=== PATIENT | male | born 1945 | race Caucasian/White ===

== ENCOUNTER → 2017-09-27 | Outpatient (CLI) | payer OTHER ==
[~2017-09-27] MED LIST: ACET500 PO; AZIT250 PO; Bupropion Xl150 MG PO; CEFA500; DOCCAL240 PO; FLUC100 PO; FOLI1 PO; GAVILAX17 GM PO; HYDACE5 PO; HYDCHL12.5 PO; LEVFLO500 PO; LOSA25 PO; Lithium Carbon600 MG PO; METR500 PO; MULTI VITAMIN1 EACH PO; NATURE'S TEARS15 M1 BOTHEYES; Naprosyn500 MG PO; ONDA8 PO; OXCA300; OXYC10TA19 PO; PANT40 PO; QUET300 PO; RETAINE HPMC 0.10 ML BOTHEYES; RXHYDACE PO; SODCHL.65S; TAMS.4ER PO; THIA100 PO; ZOLP10 PO
== END ==
LOC: LAB 14:01
DX: L03.90 Cellulitis, unspecified (principal); L03.119 Cellulitis of unspecified part of limb
CPT/HCPCS: 87070; 87205

== ENCOUNTER → 2017-12-12 | Outpatient (CLI) | payer OTHER ==
[~2017-12-12] MED LIST changes: -ACET500 PO; -Naprosyn500 MG PO; -QUET300 PO; +RETAINE HPMC 0.10 ML; -RETAINE HPMC 0.10 ML BOTHEYES
== END ==
LOC: PLD 13:24 → LAB SHORT 13:24
DX: L28.2 Other prurigo (principal)
CPT/HCPCS: 88305; 88312

== ENCOUNTER 2018-01-17 00:42 | Observation (INO) | END 2018-01-25 11:40 ==

== ENCOUNTER 2018-01-25 14:38 | Observation (INO) | payer OTHER ==
[~2018-01-25] VITALS: Ht 180.3 cm; Wt 82.4 kg
[~2018-01-25 14:38] MED LIST changes: -RETAINE HPMC 0.10 ML; +RETAINE HPMC 0.10 ML BOTHEYES
[2018-01-28 18:39] LABS: Source, Urine Clean Catch
[2018-01-28 18:44] LABS: BASOPHILS ABSOLUTE AUTO 0.02 K/mm3 (0.00-0.23); BASOPHILS PERCENT AUTO 0 % (0-2); EOSINOPHILS ABSOLUTE AUTO 0.02 K/mm3 (0.00-0.68); EOSINOPHILS PERCENT AUTO 0 % (0-6); Hemoglobin 13.7 g/dL (13.5-17.5); IMMATURE GRAN ABSOLUTE AUTO 0.07 K/mm3 (0.00-0.10); IMMATURE GRAN PERCENT AUTO 1 % (0-1); LYMPHOCYTES ABSOLUTE AUTO 0.48 K/mm3 (0.84-5.20); LYMPHOCYTES PERCENT AUTO 6 % (21-46); MONOCYTES ABSOLUTE AUTO 1.11 K/mm3 (0.16-1.47); MONOCYTES PERCENT AUTO 14 % (4-13); Mean Corpuscular HGB 30.7 pg (26.0-34.0); Mean Corpuscular HGB Conc 31.9 g/dL (31.5-36.5); Mean Corpuscular Volume 96 fL (80-100); Mean Platelet Volume 9.8 fL (9.1-12.4); NEUTROPHILS ABSOLUTE AUTO 6.51 K/mm3 (1.96-9.15); NEUTROPHILS PERCENT AUTO 79 % (41-73); Platelet Count 180 K/mm3 (150-400); RDW Coefficient Variation 13.3 % (11.7-14.2); RDW Standard Deviation 47.4 fL (35.1-46.3); Red Blood Cell Count 4.46 M/mm3 (4.30-5.90); White Blood Cell Count 8.21 K/mm3 (4.00-11.30)
[2018-01-28 18:49] LABS: Bilirubin, Urine Neg (Neg); Blood, Urine 1+ (Neg); Glucose Qualitative, Urine Neg (Neg); Ketones, Urine Neg (Neg); Leukocyte Esterase, Urine 3+ (Neg); Nitrite, Urine Neg (Neg); Protein, Urine Neg (Neg); Urobilinogen, Urine NORM (Normal)
[2018-01-28 18:52] LABS: Appearance, Urine Hazy (Clear); Color, Urine Yellow (P-Yellow)
[2018-01-28 19:09] LABS: Alanine Aminotransfer (ALT/SGP 23 U/L (12-78); Albumin, Blood 2.7 g/dL (3.4-5.0); Albumin/Globulin Ratio 0.7 (0.8-1.8); Alk Phos 66 U/L (50-136); Anion Gap 4 mmol/L (6-16); Aspartate Aminotrans (AST/SGOT 16 U/L (12-37); Bilirubin, Total 0.3 mg/dL (0.1-1.0); Blood Urea Nitrogen 21 mg/dL (8-24); Bun/Creatinine Ratio 19.8 (12.0-20.0); CO2, Blood 28 mmol/L (21-32); Calcium, Blood 11.2 mg/dL (8.5-10.1); Chloride, Blood 106 mmol/L (98-108); Creatinine, Blood 1.06 mg/dL (0.60-1.20); Globulin, Blood 3.8 g/dL (2.2-4.0); Glomerular Filtration Rate >60 (60-); Glucose, Blood 102 mg/dL (70-99); Potassium, Blood 4.6 mmol/L (3.5-5.5); Sodium, Blood 138 mmol/L (136-145); Total Protein, Blood 6.5 g/dL (6.4-8.2)
[2018-01-28 19:13] LABS: Bacteria Many /hpf; Squamous Epithelial Cells Rare /hpf (Few); White Blood Cells, Urine 50-100 /hpf (0-5)
[2018-01-30 09:01] LABS: BASOPHILS ABSOLUTE AUTO 0.02 K/mm3 (0.00-0.23); BASOPHILS PERCENT AUTO 0 % (0-2); EOSINOPHILS ABSOLUTE AUTO 0.15 K/mm3 (0.00-0.68); EOSINOPHILS PERCENT AUTO 2 % (0-6); Hematocrit 41.7 % (37.0-53.0); Hemoglobin 13.5 g/dL (13.5-17.5); IMMATURE GRAN PERCENT AUTO 1 % (0-1); LYMPHOCYTES ABSOLUTE AUTO 0.74 K/mm3 (0.84-5.20); LYMPHOCYTES PERCENT AUTO 9 % (21-46); MONOCYTES ABSOLUTE AUTO 0.88 K/mm3 (0.16-1.47); MONOCYTES PERCENT AUTO 10 % (4-13); Mean Corpuscular HGB 31.6 pg (26.0-34.0); Mean Corpuscular HGB Conc 32.4 g/dL (31.5-36.5); Mean Corpuscular Volume 98 fL (80-100); Mean Platelet Volume 9.8 fL (9.1-12.4); NEUTROPHILS ABSOLUTE AUTO 6.74 K/mm3 (1.96-9.15); NEUTROPHILS PERCENT AUTO 78 % (41-73); Platelet Count 210 K/mm3 (150-400); RDW Coefficient Variation 13.6 % (11.7-14.2); RDW Standard Deviation 48.9 fL (35.1-46.3); Red Blood Cell Count 4.27 M/mm3 (4.30-5.90); White Blood Cell Count 8.63 K/mm3 (4.00-11.30)
[2018-01-30 09:19] LABS: Alanine Aminotransfer (ALT/SGP 18 U/L (12-78); Albumin, Blood 2.4 g/dL (3.4-5.0); Albumin/Globulin Ratio 0.6 (0.8-1.8); Alk Phos 60 U/L (50-136); Anion Gap 5 mmol/L (6-16); Aspartate Aminotrans (AST/SGOT 8 U/L (12-37); Bilirubin, Total 0.2 mg/dL (0.1-1.0); Blood Urea Nitrogen 27 mg/dL (8-24); Bun/Creatinine Ratio 25.2 (12.0-20.0); CO2, Blood 29 mmol/L (21-32); Calcium, Blood 11.4 mg/dL (8.5-10.1); Chloride, Blood 107 mmol/L (98-108); Creatinine, Blood 1.07 mg/dL (0.60-1.20); Globulin, Blood 3.7 g/dL (2.2-4.0); Glomerular Filtration Rate >60 (60-); Glucose, Blood 110 mg/dL (70-99); Potassium, Blood 4.5 mmol/L (3.5-5.5); Sodium, Blood 141 mmol/L (136-145); Total Protein, Blood 6.1 g/dL (6.4-8.2)
[2018-02-02 06:19] LABS: Source, Urine Clean Catch
[2018-02-02 06:27] LABS: Bilirubin, Urine Neg (Neg); Blood, Urine Neg (Neg); Glucose Qualitative, Urine Neg (Neg); Ketones, Urine Neg (Neg); Leukocyte Esterase, Urine 1+ (Neg); Nitrite, Urine Neg (Neg); Protein, Urine Neg (Neg); Urobilinogen, Urine NORM (Normal); pH, Urine 6.5 (5.0-8.0)
[2018-02-02 06:28] LABS: Appearance, Urine Clear (Clear); Color, Urine Yellow (P-Yellow)
[2018-02-02 06:33] LABS: Bacteria Rare /hpf; Red Blood Cells, Urine Not Seen /hpf (0-2); Squamous Epithelial Cells Rare /hpf (Few)
[2018-02-04 10:40] LABS: Source, Urine Clean Catch
[2018-02-04 10:44] LABS: Bilirubin, Urine Neg (Neg); Blood, Urine Neg (Neg); Glucose Qualitative, Urine Neg (Neg); Ketones, Urine Neg (Neg); Leukocyte Esterase, Urine Neg (Neg); Nitrite, Urine Neg (Neg); Protein, Urine Neg (Neg); Specific Gravity, Urine 1.015 (1.003-1.022); Urobilinogen, Urine NORM (Normal)
[2018-02-04 10:52] LABS: Appearance, Urine Clear (Clear); Color, Urine Yellow (P-Yellow)
[2018-02-10 11:00] LABS: Calcium, Ionized (POC) 1.43 mmol/L (1.10-1.46); Chloride (POC) 108 mmol/L (98-108); Glucose (ISTAT POC) 101 mg/dL (70-99); Hemoglobin (POC) 12.9 g/dL (13.5-17.5); Potassium (POC) 4.5 mmol/L (3.5-5.5); Sodium (POC) 141 mmol/L (135-148); Total CO2 (POC) 23 mmol/L (21-32)
[2018-02-10 11:30] LABS: Lithium <0.20 mmol/L (0.60-1.20)
[2018-02-13 16:11] LABS: BASOPHILS ABSOLUTE AUTO 0.06 K/mm3 (0.00-0.23); BASOPHILS PERCENT AUTO 1 % (0-2); EOSINOPHILS PERCENT AUTO 2 % (0-6); Hematocrit 39.9 % (37.0-53.0); Hemoglobin 12.6 g/dL (13.5-17.5); IMMATURE GRAN ABSOLUTE AUTO 0.06 K/mm3 (0.00-0.10); IMMATURE GRAN PERCENT AUTO 1 % (0-1); LYMPHOCYTES ABSOLUTE AUTO 0.91 K/mm3 (0.84-5.20); LYMPHOCYTES PERCENT AUTO 8 % (21-46); MONOCYTES ABSOLUTE AUTO 0.95 K/mm3 (0.16-1.47); MONOCYTES PERCENT AUTO 9 % (4-13); Mean Corpuscular HGB Conc 31.6 g/dL (31.5-36.5); Mean Corpuscular Volume 98 fL (80-100); Mean Platelet Volume 9.5 fL (9.1-12.4); NEUTROPHILS ABSOLUTE AUTO 8.82 K/mm3 (1.96-9.15); NEUTROPHILS PERCENT AUTO 80 % (41-73); Platelet Count 301 K/mm3 (150-400); RDW Coefficient Variation 13.7 % (11.7-14.2); RDW Standard Deviation 49.6 fL (35.1-46.3); Red Blood Cell Count 4.06 M/mm3 (4.30-5.90)
[2018-02-13 16:34] LABS: Alanine Aminotransfer (ALT/SGP 16 U/L (12-78); Albumin, Blood 2.8 g/dL (3.4-5.0); Albumin/Globulin Ratio 0.9 (0.8-1.8); Alk Phos 69 U/L (50-136); Anion Gap 6 mmol/L (6-16); Aspartate Aminotrans (AST/SGOT 9 U/L (12-37); Bilirubin, Total 0.3 mg/dL (0.1-1.0); Blood Urea Nitrogen 30 mg/dL (8-24); Bun/Creatinine Ratio 29.4 (12.0-20.0); CO2, Blood 25 mmol/L (21-32); Calcium, Blood 9.7 mg/dL (8.5-10.1); Chloride, Blood 112 mmol/L (98-108); Creatinine, Blood 1.02 mg/dL (0.60-1.20); Globulin, Blood 3.2 g/dL (2.2-4.0); Glomerular Filtration Rate >60 (60-); Glucose, Blood 93 mg/dL (70-99); Potassium, Blood 4.8 mmol/L (3.5-5.5); Sodium, Blood 143 mmol/L (136-145); Troponin I <0.015 ng/mL (0.000-0.040)
[2018-02-13 16:35] LABS: Thyroid Stimulating Hormone 0.125 uIU/mL (0.360-4.800)
[2018-02-13 21:10] LABS: Free Thyroxine 0.79 ng/dL (0.70-1.60)
[2018-02-13 21:12] LABS: Triiodothyronine, Free 1.62 pg/mL (2.18-3.98)
[2018-03-06 15:26] LABS: BASOPHILS ABSOLUTE AUTO 0.05 K/mm3 (0.00-0.23); BASOPHILS PERCENT AUTO 1 % (0-2); EOSINOPHILS ABSOLUTE AUTO 0.34 K/mm3 (0.00-0.68); EOSINOPHILS PERCENT AUTO 4 % (0-6); Hematocrit 37.3 % (37.0-53.0); Hemoglobin 12.2 g/dL (13.5-17.5); IMMATURE GRAN ABSOLUTE AUTO 0.02 K/mm3 (0.00-0.10); IMMATURE GRAN PERCENT AUTO 0 % (0-1); LYMPHOCYTES ABSOLUTE AUTO 1.15 K/mm3 (0.84-5.20); LYMPHOCYTES PERCENT AUTO 13 % (21-46); MONOCYTES ABSOLUTE AUTO 0.75 K/mm3 (0.16-1.47); MONOCYTES PERCENT AUTO 9 % (4-13); Mean Corpuscular HGB 31.5 pg (26.0-34.0); Mean Corpuscular HGB Conc 32.7 g/dL (31.5-36.5); Mean Corpuscular Volume 96 fL (80-100); Mean Platelet Volume 9.6 fL (9.1-12.4); NEUTROPHILS ABSOLUTE AUTO 6.47 K/mm3 (1.96-9.15); NEUTROPHILS PERCENT AUTO 74 % (41-73); Platelet Count 210 K/mm3 (150-400); RDW Coefficient Variation 14.6 % (11.7-14.2); RDW Standard Deviation 51.2 fL (35.1-46.3); Red Blood Cell Count 3.87 M/mm3 (4.30-5.90); White Blood Cell Count 8.78 K/mm3 (4.00-11.30)
[2018-03-06 15:45] LABS: Alanine Aminotransfer (ALT/SGP 10 U/L (12-78); Albumin, Blood 3.1 g/dL (3.4-5.0); Alk Phos 65 U/L (50-136); Anion Gap 8 mmol/L (6-16); Aspartate Aminotrans (AST/SGOT 9 U/L (12-37); Bilirubin, Total 0.5 mg/dL (0.1-1.0); Blood Urea Nitrogen 25 mg/dL (8-24); Bun/Creatinine Ratio 22.9 (12.0-20.0); CO2, Blood 21 mmol/L (21-32); Calcium, Blood 9.2 mg/dL (8.5-10.1); Chloride, Blood 113 mmol/L (98-108); Creatinine, Blood 1.09 mg/dL (0.60-1.20); Glomerular Filtration Rate >60 (60-); Glucose, Blood 93 mg/dL (70-99); Potassium, Blood 4.1 mmol/L (3.5-5.5); Sodium, Blood 142 mmol/L (136-145); Total Protein, Blood 6.1 g/dL (6.4-8.2)
[2018-03-06 15:49] LABS: Lithium 0.94 mmol/L (0.60-1.20)
[2018-03-08 04:56] LABS: BASOPHILS ABSOLUTE AUTO 0.04 K/mm3 (0.00-0.23); BASOPHILS PERCENT AUTO 1 % (0-2); EOSINOPHILS ABSOLUTE AUTO 0.39 K/mm3 (0.00-0.68); EOSINOPHILS PERCENT AUTO 5 % (0-6); Hematocrit 36.2 % (37.0-53.0); Hemoglobin 11.5 g/dL (13.5-17.5); IMMATURE GRAN ABSOLUTE AUTO 0.03 K/mm3 (0.00-0.10); IMMATURE GRAN PERCENT AUTO 0 % (0-1); LYMPHOCYTES ABSOLUTE AUTO 1.23 K/mm3 (0.84-5.20); LYMPHOCYTES PERCENT AUTO 14 % (21-46); MONOCYTES ABSOLUTE AUTO 0.81 K/mm3 (0.16-1.47); MONOCYTES PERCENT AUTO 10 % (4-13); Mean Corpuscular HGB 30.3 pg (26.0-34.0); Mean Corpuscular HGB Conc 31.8 g/dL (31.5-36.5); Mean Corpuscular Volume 96 fL (80-100); Mean Platelet Volume 9.5 fL (9.1-12.4); NEUTROPHILS ABSOLUTE AUTO 6.05 K/mm3 (1.96-9.15); NEUTROPHILS PERCENT AUTO 71 % (41-73); Platelet Count 208 K/mm3 (150-400); RDW Coefficient Variation 14.7 % (11.7-14.2); RDW Standard Deviation 50.8 fL (35.1-46.3); Red Blood Cell Count 3.79 M/mm3 (4.30-5.90); White Blood Cell Count 8.55 K/mm3 (4.00-11.30)
[2018-03-08 05:18] LABS: Alanine Aminotransfer (ALT/SGP 8 U/L (12-78); Albumin, Blood 2.8 g/dL (3.4-5.0); Alk Phos 61 U/L (50-136); Anion Gap 7 mmol/L (6-16); Aspartate Aminotrans (AST/SGOT 9 U/L (12-37); Bilirubin, Total 0.5 mg/dL (0.1-1.0); Blood Urea Nitrogen 26 mg/dL (8-24); Bun/Creatinine Ratio 25.5 (12.0-20.0); CO2, Blood 23 mmol/L (21-32); Calcium, Blood 9.1 mg/dL (8.5-10.1); Chloride, Blood 115 mmol/L (98-108); Creatinine, Blood 1.02 mg/dL (0.60-1.20); Globulin, Blood 2.8 g/dL (2.2-4.0); Glomerular Filtration Rate >60 (60-); Glucose, Blood 94 mg/dL (70-99); Potassium, Blood 3.9 mmol/L (3.5-5.5); Sodium, Blood 145 mmol/L (136-145); Total Protein, Blood 5.6 g/dL (6.4-8.2)
[2018-03-09] MEDS ORDERED: ACET500 PO (13:34)
[2018-03-09] MEDS ORDERED: QUET300 PO (13:34)
== END 2018-03-09 16:16 | disposition home or self-care (01) ==
LOC: ER 14:38 → EOR 14:39 → MEDS 03-07 18:53 → ENPENDDIS 03-09 12:42 → MEDS 03-09 16:16
PROVIDERS: Emergency Medicine; Internal Medicine; Student in an Organized Health Care Education/Training Program
DX: F30.9 Manic episode, unspecified (principal); F23 Brief psychotic disorder; E86.0 Dehydration; F11.90 Opioid use, unspecified, uncomplicated; E83.52 Hypercalcemia; G30.9 Alzheimer's disease, unspecified; F02.80 Dementia in other diseases classified elsewhere, unspecified severity, without behavioral disturbance, psychotic disturbance, mood disturbance, and anxiety; N40.0 Benign prostatic hyperplasia without lower urinary tract symptoms; I10 Essential (primary) hypertension; M19.90 Unspecified osteoarthritis, unspecified site; G47.33 Obstructive sleep apnea (adult) (pediatric); K50.90 Crohn's disease, unspecified, without complications; I95.9 Hypotension, unspecified; Z79.2 Long term (current) use of antibiotics; Z79.899 Other long term (current) drug therapy
CPT/HCPCS: 36415; 51798; 70450; 80047; 80053; 80178; 81001; 81003; 83605; 84439; 84443; 84481; 84484; 85014; 85025; 87077; 87086; 87186; 93005; 93010; 96360; 96361; 97162; 99285-25; G0378; G8978; G8979; G8980; J7030

== ENCOUNTER 2018-04-19 08:36 | Emergency (ER) | payer OTHER ==
[~2018-04-19] VITALS: Ht 182.9 cm; Wt 80.7 kg
[~2018-04-19 08:36] MED LIST changes: +ACET500 PO; +QUET300 PO
[2018-04-19 10:00] LABS: Chloride (POC) 110 mmol/L (98-108); Creatinine (POC) 1.1 mg/dL (0.8-1.3); Glucose (ISTAT POC) 84 mg/dL (70-99); Hemoglobin (POC) 14.3 g/dL (13.5-17.5); Potassium (POC) 4.3 mmol/L (3.5-5.5); Sodium (POC) 142 mmol/L (135-148); Total CO2 (POC) 24 mmol/L (21-32)
== END 2018-04-19 10:51 | disposition left against medical advice (07) ==
LOC: ER 08:36
PROVIDERS: Physician Assistant
DX: J44.1 Chronic obstructive pulmonary disease with (acute) exacerbation (principal); F31.9 Bipolar disorder, unspecified; F03.90 Unspecified dementia, unspecified severity, without behavioral disturbance, psychotic disturbance, mood disturbance, and anxiety; I10 Essential (primary) hypertension; F17.200 Nicotine dependence, unspecified, uncomplicated; Z79.899 Other long term (current) drug therapy
CPT/HCPCS: 71046; 80047; 85014; 99283-25

== ENCOUNTER 2019-02-26 17:48 | Emergency (ER) | payer SELFPAY ==
[~2019-02-26] VITALS: Ht 182.9 cm; Wt 78.0 kg
[~2019-02-26 17:48] MED LIST changes: +Lasix20 MG PO; +Naprosyn500 MG PO
[2019-02-26] MEDS ORDERED: Lithium Carbon600 MG PO (18:52)
== END 2019-02-26 19:14 | disposition home or self-care (01) ==
LOC: ER 17:48
DX: Z76.0 Encounter for issue of repeat prescription (principal); Z79.899 Other long term (current) drug therapy; F31.9 Bipolar disorder, unspecified; F03.90 Unspecified dementia, unspecified severity, without behavioral disturbance, psychotic disturbance, mood disturbance, and anxiety; I10 Essential (primary) hypertension; F17.210 Nicotine dependence, cigarettes, uncomplicated
CPT/HCPCS: 99281

== ENCOUNTER 2019-04-27 03:21 | Emergency (ER) | payer OTHER ==
[~2019-04-27] VITALS: Ht 182.9 cm; Wt 81.7 kg
[2019-04-27 04:31] LABS: BASOPHILS ABSOLUTE AUTO 0.04 K/mm3 (0.00-0.23); BASOPHILS PERCENT AUTO 0 % (0-2); EOSINOPHILS ABSOLUTE AUTO 0.19 K/mm3 (0.00-0.68); EOSINOPHILS PERCENT AUTO 2 % (0-6); Hematocrit 43.8 % (37.0-53.0); Hemoglobin 14.1 g/dL (13.5-17.5); IMMATURE GRAN ABSOLUTE AUTO 0.06 K/mm3 (0.00-0.10); IMMATURE GRAN PERCENT AUTO 1 % (0-1); LYMPHOCYTES ABSOLUTE AUTO 1.16 K/mm3 (0.84-5.20); LYMPHOCYTES PERCENT AUTO 10 % (21-46); MONOCYTES ABSOLUTE AUTO 0.88 K/mm3 (0.16-1.47); MONOCYTES PERCENT AUTO 8 % (4-13); Mean Corpuscular HGB 32.3 pg (26.0-34.0); Mean Corpuscular HGB Conc 32.2 g/dL (31.5-36.5); Mean Corpuscular Volume 100 fL (80-100); NEUTROPHILS ABSOLUTE AUTO 9.16 K/mm3 (1.96-9.15); NEUTROPHILS PERCENT AUTO 80 % (41-73); RDW Coefficient Variation 16.5 % (11.7-14.2); RDW Standard Deviation 61.9 fL (35.1-46.3); Red Blood Cell Count 4.37 M/mm3 (4.30-5.90); White Blood Cell Count 11.49 K/mm3 (4.00-11.30)
[2019-04-27 04:34] LABS: Mean Platelet Volume 9.5 fL (9.1-12.4); Platelet Count 268 K/mm3 (150-400)
[2019-04-27 04:42] LABS: Alanine Aminotransfer (ALT/SGP 14 U/L (12-78); Albumin, Blood 3.4 g/dL (3.4-5.0); Albumin/Globulin Ratio 0.9 (0.8-1.8); Alk Phos 91 U/L (50-136); Anion Gap 6 mmol/L (6-16); Aspartate Aminotrans (AST/SGOT 16 U/L (12-37); Bilirubin, Total 0.5 mg/dL (0.1-1.0); Blood Urea Nitrogen 20 mg/dL (8-24); Bun/Creatinine Ratio 20.1 (12.0-20.0); CO2, Blood 24 mmol/L (21-32); Calcium, Blood 9.6 mg/dL (8.5-10.1); Chloride, Blood 110 mmol/L (98-108); Ethanol (Alcohol), Blood, Med <3 mg/dL; Globulin, Blood 3.8 g/dL (2.2-4.0); Glomerular Filtration Rate >60 (60-); Glucose, Blood 83 mg/dL (70-99); International Normalized Ratio 0.97; Potassium, Blood 4.1 mmol/L (3.5-5.5); Prothrombin Time Results 10.3 Sec (9.7-11.5); Sodium, Blood 140 mmol/L (136-145); Total Protein, Blood 7.2 g/dL (6.4-8.2)
[2019-04-27 06:16] LABS: Lithium <0.20 mmol/L (0.60-1.20)
== END 2019-04-27 08:15 | disposition home or self-care (01) ==
LOC: ER 03:21
PROVIDERS: Emergency Medicine
DX: S30.1XXA Contusion of abdominal wall, initial encounter (principal); Z91.19 Patient's noncompliance with other medical treatment and regimen; V49.9XXA Car occupant (driver) (passenger) injured in unspecified traffic accident, initial encounter; Z79.899 Other long term (current) drug therapy; F31.9 Bipolar disorder, unspecified; G30.9 Alzheimer's disease, unspecified; I10 Essential (primary) hypertension; F17.210 Nicotine dependence, cigarettes, uncomplicated
CPT/HCPCS: 36415; 70450; 71250; 72125; 74176; 80053; 80178; 83690; 85025; 85610; 85730; 86850; 86900; 86901; 96374; 96375; 99284-25; G0480; J2060; J2270

== ENCOUNTER 2019-04-28 17:20 | Emergency (ER) | payer OTHER ==
[~2019-04-28] VITALS: Ht 180.3 cm; Wt 90.7 kg
== END 2019-04-28 18:01 | disposition home or self-care (01) ==
LOC: ER 17:20
DX: M54.9 Dorsalgia, unspecified (principal); I10 Essential (primary) hypertension; F31.9 Bipolar disorder, unspecified; G30.9 Alzheimer's disease, unspecified; F02.80 Dementia in other diseases classified elsewhere, unspecified severity, without behavioral disturbance, psychotic disturbance, mood disturbance, and anxiety; F17.210 Nicotine dependence, cigarettes, uncomplicated; Z79.899 Other long term (current) drug therapy; V89.2XXA Person injured in unspecified motor-vehicle accident, traffic, initial encounter
CPT/HCPCS: 99283

== ENCOUNTER 2019-07-25 19:18 | Emergency (ER) | payer SELFPAY ==
[~2019-07-25] VITALS: Ht 175.3 cm; Wt 84.8 kg
== END 2019-07-25 20:04 | disposition home or self-care (01) ==
LOC: ER 19:18
DX: S20.211A Contusion of right front wall of thorax, initial encounter (principal); F31.9 Bipolar disorder, unspecified; Z79.899 Other long term (current) drug therapy; Y04.2XXA Assault by strike against or bumped into by another person, initial encounter
CPT/HCPCS: 73030; 73110; 99283-25

== ENCOUNTER 2019-08-09 19:25 | Emergency (ER) | payer SELFPAY ==
[~2019-08-09 19:25] MED LIST changes: +HYDR25SUP PR
[2019-08-17] MEDS ORDERED: IBUP600 PO (14:30)
[2019-08-19] MEDS ORDERED: ACETAMINOPHEN500 MG PO (18:06)
== END 2019-08-09 19:28 | disposition left against medical advice (07) ==
LOC: ER 19:25
DX: Z53.21 Procedure and treatment not carried out due to patient leaving prior to being seen by health care provider (principal)

== ENCOUNTER 2019-10-05 10:18 | Emergency (ER) | payer SELFPAY ==
[~2019-10-05] VITALS: Ht 177.8 cm; Wt 74.8 kg
[~2019-10-05 10:18] MED LIST changes: +ACETAMINOPHEN500 MG PO; +IBUP600 PO
[2019-10-05 10:52] LABS: BASOPHILS ABSOLUTE AUTO 0.03 K/mm3 (0.00-0.23); BASOPHILS PERCENT AUTO 0 % (0-2); EOSINOPHILS ABSOLUTE AUTO 0.17 K/mm3 (0.00-0.68); EOSINOPHILS PERCENT AUTO 2 % (0-6); Hematocrit 42.8 % (37.0-53.0); IMMATURE GRAN ABSOLUTE AUTO 0.06 K/mm3 (0.00-0.10); IMMATURE GRAN PERCENT AUTO 1 % (0-1); LYMPHOCYTES ABSOLUTE AUTO 0.93 K/mm3 (0.84-5.20); LYMPHOCYTES PERCENT AUTO 11 % (21-46); MONOCYTES PERCENT AUTO 12 % (4-13); Mean Corpuscular HGB 28.7 pg (26.0-34.0); Mean Corpuscular HGB Conc 30.4 g/dL (31.5-36.5); Mean Corpuscular Volume 95 fL (80-100); Mean Platelet Volume 9.6 fL (9.1-12.4); NEUTROPHILS ABSOLUTE AUTO 6.06 K/mm3 (1.96-9.15); NEUTROPHILS PERCENT AUTO 73 % (41-73); Platelet Count 282 K/mm3 (150-400); RDW Coefficient Variation 15.5 % (11.7-14.2); RDW Standard Deviation 53.3 fL (35.1-46.3); Red Blood Cell Count 4.53 M/mm3 (4.30-5.90); White Blood Cell Count 8.25 K/mm3 (4.00-11.30)
[2019-10-05 11:13] LABS: Alanine Aminotransfer (ALT/SGP 10 U/L (12-78); Albumin, Blood 2.5 g/dL (3.4-5.0); Albumin/Globulin Ratio 0.7 (0.8-1.8); Alk Phos 87 U/L (50-136); Anion Gap 2 mmol/L (6-16); Aspartate Aminotrans (AST/SGOT 5 U/L (12-37); Bilirubin, Total 0.3 mg/dL (0.1-1.0); Blood Urea Nitrogen 18 mg/dL (8-24); Bun/Creatinine Ratio 17.8 (12.0-20.0); CO2, Blood 28 mmol/L (21-32); Chloride, Blood 114 mmol/L (98-108); Creatinine, Blood 1.01 mg/dL (0.60-1.20); Globulin, Blood 3.8 g/dL (2.2-4.0); Glomerular Filtration Rate >60 (60-); Glucose, Blood 114 mg/dL (70-99); Potassium, Blood 4.7 mmol/L (3.5-5.5); Sodium, Blood 144 mmol/L (136-145); Total Protein, Blood 6.3 g/dL (6.4-8.2); Troponin I <0.015 ng/mL (0.000-0.040)
[2019-10-05 11:17] LABS: Thyroid Stimulating Hormone 0.168 uIU/mL (0.360-4.800)
[2019-10-05] MEDS ORDERED: Cardizem CD 12120 MG PO (12:46)
[2019-10-05] MEDS ORDERED: Lithium Carbon450 MG PO (14:15)
[2019-10-06] MEDS ORDERED: CEFD300 PO (10:23)
== END 2019-10-05 14:20 | disposition home or self-care (01) ==
LOC: ER 10:18
PROVIDERS: Emergency Medicine
DX: M79.661 Pain in right lower leg (principal); M79.662 Pain in left lower leg; I48.92 Unspecified atrial flutter; F31.9 Bipolar disorder, unspecified; I10 Essential (primary) hypertension; F17.210 Nicotine dependence, cigarettes, uncomplicated; Z79.899 Other long term (current) drug therapy
CPT/HCPCS: 36415; 71045; 80053; 83735; 84443; 84484; 85025; 93005; 93010; 96365; 96366; 96368; 96375; 99285-25; J3411; J3475; J7030; J7042

== ENCOUNTER 2019-10-10 12:41 | Emergency (ER) | payer OTHER ==
[~2019-10-10] VITALS: Ht 180.3 cm; Wt 84.8 kg
[~2019-10-10 12:41] MED LIST changes: +CEFD300 PO; +Cardizem CD 12120 MG PO; +Lithium Carbon450 MG PO
[2019-10-11] MEDS ORDERED: Augmentin 875-1 EACH PO (20:53)
== END 2019-10-10 14:57 | disposition home or self-care (01) ==
LOC: ER 12:41
DX: R51 Headache (principal); Z59.0 Homelessness; F31.9 Bipolar disorder, unspecified; I10 Essential (primary) hypertension; N40.0 Benign prostatic hyperplasia without lower urinary tract symptoms
CPT/HCPCS: 99284

== ENCOUNTER 2019-10-11 19:06 | Emergency (ER) | payer OTHER ==
[~2019-10-11] VITALS: Ht 182.9 cm; Wt 84.8 kg
[2019-10-11] MEDS ORDERED: Augmentin 875-1 EACH PO (20:53)
== END 2019-10-11 21:20 | disposition home or self-care (01) ==
LOC: ER 19:06
DX: S30.0XXA Contusion of lower back and pelvis, initial encounter (principal); N39.0 Urinary tract infection, site not specified; H92.01 Otalgia, right ear; F17.210 Nicotine dependence, cigarettes, uncomplicated; Y04.2XXA Assault by strike against or bumped into by another person, initial encounter
CPT/HCPCS: 72220; 96372; 99283-25; J0696

== ENCOUNTER 2019-10-12 04:38 | Emergency (ER) | payer OTHER ==
[~2019-10-12] VITALS: Ht 172.7 cm; Wt 72.6 kg
[~2019-10-12 04:38] MED LIST changes: +Augmentin 875-1 EACH PO
== END 2019-10-12 04:52 | disposition home or self-care (01) ==
LOC: ER 04:38
DX: Z00.00 Encounter for general adult medical examination without abnormal findings (principal); F31.9 Bipolar disorder, unspecified; I10 Essential (primary) hypertension; G30.9 Alzheimer's disease, unspecified; F02.80 Dementia in other diseases classified elsewhere, unspecified severity, without behavioral disturbance, psychotic disturbance, mood disturbance, and anxiety; G47.30 Sleep apnea, unspecified; F17.200 Nicotine dependence, unspecified, uncomplicated
CPT/HCPCS: 99283

== ENCOUNTER 2019-10-21 23:50 | Emergency (ER) | payer OTHER ==
[~2019-10-21] VITALS: Ht 182.9 cm; Wt 84.8 kg
[2019-10-25] MEDS ORDERED: AZIT500 PO (18:49)
[2019-10-25] MEDS ORDERED: LITH300C PO (18:56)
== END 2019-10-22 01:12 | disposition home or self-care (01) ==
LOC: ER 23:50
DX: S09.90XA Unspecified injury of head, initial encounter (principal); K43.9 Ventral hernia without obstruction or gangrene; I10 Essential (primary) hypertension; F17.210 Nicotine dependence, cigarettes, uncomplicated; X58.XXXA Exposure to other specified factors, initial encounter
CPT/HCPCS: 99283

== ENCOUNTER 2019-11-21 15:24 | Emergency (ER) | payer OTHER ==
[~2019-11-21] VITALS: Ht 175.3 cm; Wt 81.7 kg
[~2019-11-21 15:24] MED LIST changes: +AZIT500 PO; +LITH300C PO
[2019-11-21 15:57] LABS: BASOPHILS ABSOLUTE AUTO 0.06 K/mm3 (0.00-0.23); BASOPHILS PERCENT AUTO 1 % (0-2); EOSINOPHILS ABSOLUTE AUTO 0.16 K/mm3 (0.00-0.68); EOSINOPHILS PERCENT AUTO 2 % (0-6); Hematocrit 40.6 % (37.0-53.0); Hemoglobin 12.6 g/dL (13.5-17.5); IMMATURE GRAN ABSOLUTE AUTO 0.03 K/mm3 (0.00-0.10); IMMATURE GRAN PERCENT AUTO 0 % (0-1); LYMPHOCYTES ABSOLUTE AUTO 0.91 K/mm3 (0.84-5.20); LYMPHOCYTES PERCENT AUTO 12 % (21-46); MONOCYTES PERCENT AUTO 11 % (4-13); Mean Corpuscular HGB 30.2 pg (26.0-34.0); Mean Corpuscular Volume 97 fL (80-100); Mean Platelet Volume 9.6 fL (9.1-12.4); NEUTROPHILS ABSOLUTE AUTO 5.83 K/mm3 (1.96-9.15); NEUTROPHILS PERCENT AUTO 74 % (41-73); Platelet Count 272 K/mm3 (150-400); RDW Coefficient Variation 16.3 % (11.7-14.2); RDW Standard Deviation 59.4 fL (35.1-46.3); Red Blood Cell Count 4.17 M/mm3 (4.30-5.90); White Blood Cell Count 7.89 K/mm3 (4.00-11.30)
[2019-11-21 16:16] LABS: Source, Urine Clean Catch
[2019-11-21 16:18] LABS: Alanine Aminotransfer (ALT/SGP 16 U/L (12-78); Albumin, Blood 3.2 g/dL (3.4-5.0); Albumin/Globulin Ratio 0.9 (0.8-1.8); Alk Phos 95 U/L (50-136); Anion Gap 4 mmol/L (6-16); Aspartate Aminotrans (AST/SGOT 14 U/L (12-37); Bilirubin, Total 0.3 mg/dL (0.1-1.0); Blood Urea Nitrogen 18 mg/dL (8-24); Bun/Creatinine Ratio 22.1 (12.0-20.0); CO2, Blood 27 mmol/L (21-32); Chloride, Blood 109 mmol/L (98-108); Creatinine, Blood 0.81 mg/dL (0.60-1.20); Globulin, Blood 3.4 g/dL (2.2-4.0); Glomerular Filtration Rate >60 (60-); Glucose, Blood 110 mg/dL (70-99); Potassium, Blood 4.5 mmol/L (3.5-5.5); Sodium, Blood 140 mmol/L (136-145); Total Protein, Blood 6.6 g/dL (6.4-8.2)
[2019-11-21 16:41] LABS: Bilirubin, Urine Neg (Neg); Blood, Urine Neg (Neg); Glucose Qualitative, Urine Neg (Neg); Ketones, Urine Neg (Neg); Leukocyte Esterase, Urine Neg (Neg); Nitrite, Urine Neg (Neg); Protein, Urine Neg (Neg); Specific Gravity, Urine 1.015 (1.003-1.022); Urobilinogen, Urine NORM (Normal)
[2019-11-21 16:48] LABS: Appearance, Urine Clear (Clear); Color, Urine Yellow (P-Yellow)
[2019-11-21] MEDS ORDERED: DEXA4 PO (17:05)
== END 2019-11-21 17:33 | disposition home or self-care (01) ==
LOC: ER 15:24
PROVIDERS: Emergency Medicine
DX: K50.90 Crohn's disease, unspecified, without complications (principal); F31.9 Bipolar disorder, unspecified; I10 Essential (primary) hypertension; F17.210 Nicotine dependence, cigarettes, uncomplicated; Z79.899 Other long term (current) drug therapy
CPT/HCPCS: 36415; 80053; 81003; 85025; 96361; 96374; 96375; 99284-25; J1100; J2405; J3010; J7030

== ENCOUNTER 2019-11-22 20:23 | Emergency (ER) | payer OTHER ==
[~2019-11-22] VITALS: Ht 182.9 cm; Wt 84.8 kg
[~2019-11-22 20:23] MED LIST changes: +DEXA4 PO
== END 2019-11-22 23:23 | disposition home or self-care (01) ==
LOC: ER 20:23
DX: M54.5 Low back pain (principal); G89.29 Other chronic pain; F31.9 Bipolar disorder, unspecified; I10 Essential (primary) hypertension; G47.30 Sleep apnea, unspecified; F17.200 Nicotine dependence, unspecified, uncomplicated; Z79.899 Other long term (current) drug therapy
CPT/HCPCS: 99283

== ENCOUNTER 2019-11-24 00:38 | Emergency (ER) | payer OTHER ==
[~2019-11-24] VITALS: Ht 182.9 cm; Wt 84.8 kg
[2019-11-24] MEDS ORDERED: IBUP600 PO (02:51)
== END 2019-11-24 03:13 | disposition home or self-care (01) ==
LOC: ER 00:38
DX: S29.012A Strain of muscle and tendon of back wall of thorax, initial encounter (principal); M54.5 Low back pain; G89.29 Other chronic pain; F31.9 Bipolar disorder, unspecified; I10 Essential (primary) hypertension; N40.0 Benign prostatic hyperplasia without lower urinary tract symptoms; Z79.899 Other long term (current) drug therapy; F17.200 Nicotine dependence, unspecified, uncomplicated; G30.9 Alzheimer's disease, unspecified; F02.80 Dementia in other diseases classified elsewhere, unspecified severity, without behavioral disturbance, psychotic disturbance, mood disturbance, and anxiety; X58.XXXA Exposure to other specified factors, initial encounter
CPT/HCPCS: 99282; A9270-GY

== ENCOUNTER 2019-11-25 08:10 | Emergency (ER) | payer SELFPAY ==
[~2019-11-25] VITALS: Ht 175.3 cm; Wt 74.8 kg
== END 2019-11-25 09:33 | disposition left against medical advice (07) ==
LOC: ER 08:10
DX: Z53.21 Procedure and treatment not carried out due to patient leaving prior to being seen by health care provider (principal)

== ENCOUNTER 2019-12-01 14:12 | Observation (INO) | payer OTHER ==
[~2019-12-01] VITALS: Ht 172.7 cm; Wt 79.6 kg
[2019-12-01 17:27] LABS: Source, Urine Voided
[2019-12-01 17:29] LABS: BASOPHILS ABSOLUTE AUTO 0.03 K/mm3 (0.00-0.23); BASOPHILS PERCENT AUTO 0 % (0-2); EOSINOPHILS ABSOLUTE AUTO 0.14 K/mm3 (0.00-0.68); EOSINOPHILS PERCENT AUTO 1 % (0-6); Hematocrit 43.4 % (37.0-53.0); Hemoglobin 13.1 g/dL (13.5-17.5); IMMATURE GRAN ABSOLUTE AUTO 0.03 K/mm3 (0.00-0.10); IMMATURE GRAN PERCENT AUTO 0 % (0-1); LYMPHOCYTES ABSOLUTE AUTO 0.59 K/mm3 (0.84-5.20); LYMPHOCYTES PERCENT AUTO 6 % (21-46); MONOCYTES ABSOLUTE AUTO 0.74 K/mm3 (0.16-1.47); MONOCYTES PERCENT AUTO 8 % (4-13); Mean Corpuscular HGB Conc 30.2 g/dL (31.5-36.5); Mean Platelet Volume 10.2 fL (9.1-12.4); NEUTROPHILS ABSOLUTE AUTO 8.21 K/mm3 (1.96-9.15); NEUTROPHILS PERCENT AUTO 84 % (41-73); Platelet Count 260 K/mm3 (150-400); RDW Standard Deviation 60.1 fL (35.1-46.3); Red Blood Cell Count 4.36 M/mm3 (4.30-5.90); White Blood Cell Count 9.74 K/mm3 (4.00-11.30)
[2019-12-01 17:30] LABS: Alanine Aminotransfer (ALT/SGP 22 U/L (12-78); Albumin, Blood 2.7 g/dL (3.4-5.0); Albumin/Globulin Ratio 0.9 (0.8-1.8); Alk Phos 83 U/L (50-136); Anion Gap 4 mmol/L (6-16); Aspartate Aminotrans (AST/SGOT 24 U/L (12-37); Bilirubin, Total 0.3 mg/dL (0.1-1.0); Blood Urea Nitrogen 21 mg/dL (8-24); Bun/Creatinine Ratio 34.7 (12.0-20.0); CO2, Blood 25 mmol/L (21-32); Calcium, Blood 9.7 mg/dL (8.5-10.1); Chloride, Blood 117 mmol/L (98-108); Creatinine, Blood 0.61 mg/dL (0.60-1.20); Globulin, Blood 3.1 g/dL (2.2-4.0); Glomerular Filtration Rate >60 (60-); Glucose, Blood 85 mg/dL (70-99); Magnesium, Blood 1.9 mg/dL (1.6-2.4); Mean Corpuscular Volume 100 fL (80-100); Potassium, Blood 4.2 mmol/L (3.5-5.5); Sodium, Blood 146 mmol/L (136-145); Total Protein, Blood 5.8 g/dL (6.4-8.2)
[2019-12-01 17:31] LABS: Blood, Urine 3+ (Neg); Glucose Qualitative, Urine Neg (Neg); Ketones, Urine 1+ (Neg); Leukocyte Esterase, Urine 1+ (Neg); Nitrite, Urine Neg (Neg); Protein, Urine 2+ (Neg); Specific Gravity, Urine 1.025 (1.003-1.022); Urobilinogen, Urine 1+ (Normal)
[2019-12-01 17:44] LABS: Ethanol (Alcohol), Blood, Med <3 mg/dL
[2019-12-01 17:44] LABS: Appearance, Urine Hazy (Clear); Bilirubin, Urine 1+ (Neg); Color, Urine Yellow (P-Yellow)
[2019-12-01 17:47] LABS: Squamous Epithelial Cells Few /hpf (Few); White Blood Cells, Urine 0-2 /hpf (0-5)
[2019-12-01 17:48] LABS: Amorphous Mod (0-Heavy); Bacteria Mod /hpf
[2019-12-01 17:49] LABS: U Amphetamine Screen Not Detected; U Barbituate Screen Not Detected; U Benzodiazapine Screen Not Detected; U Buprenorphine Screen Not Detected; U Cannabinoids Screen DETECTED; U Cocaine Screen Not Detected; U Methadone Screen Not Detected; U Methamphetamine Screen Not Detected; U Opiates Screen Not Detected; U Oxycodone Screen Not Detected; U Phencyclidine Screen Not Detected; U Propoxyphene Screen Not Detected
[2019-12-01] MEDS ORDERED: FUROSEMIDE20 MG PO (18:24)
[2019-12-01] MEDS ORDERED: GABA100 PO (18:24)
[2019-12-01] MEDS ORDERED: BIOTIN5 MG PO (18:24)
[2019-12-01] MEDS ORDERED: Klor-Con 1010 MEQ PO (18:25)
[2019-12-01 19:05] LABS: Lithium <0.20 mmol/L (0.60-1.20)
[2019-12-01 19:06] LABS: Troponin I <0.015 ng/mL (0.000-0.040)
[2019-12-01 19:08] LABS: Thyroid Stimulating Hormone 0.564 uIU/mL (0.360-4.800)
--- NOTE | 2019-12-01 21:06 | NUR ---
PATIENT IS A NEW ADMIT FROM THE ED. AXO X [address] NO MONTH OR PRESIDENT. TWO PERSON TRANSFER FROM [facility] TO BED. REOPRTS HE IS HOMELESS. PATIENT ORIENTED TO ROOM AND CALL LIGHT SYSTEM. REPORTS BACK PAIN AT THIS TIME, FOOD AND DRINK PROVIDED PER DIET ORDERS. BEDREST. REPORTS WANTS TO GET SOME SLEEP. CALL LIGHT IN REACH.
--- NOTE | 2019-12-01 22:46 | NUR ---
SCHEDULED NICODERM PATCHED PLACED ON RIGHT SHOULDER. ULTRAM 50 MG GIVEN FOR BACK PAIN PER EMAR. SEROQUEL 25 MG GIVEN PRN PER HOSPITALIST TEMO RIG BUILDER. PATIENT RESTING AT THIS TIME.
[2019-12-02 00:19] LABS: BASOPHILS ABSOLUTE AUTO 0.03 K/mm3 (0.00-0.23); BASOPHILS PERCENT AUTO 0 % (0-2); EOSINOPHILS ABSOLUTE AUTO 0.23 K/mm3 (0.00-0.68); EOSINOPHILS PERCENT AUTO 3 % (0-6); Hematocrit 37.8 % (37.0-53.0); Hemoglobin 11.5 g/dL (13.5-17.5); IMMATURE GRAN ABSOLUTE AUTO 0.02 K/mm3 (0.00-0.10); IMMATURE GRAN PERCENT AUTO 0 % (0-1); LYMPHOCYTES ABSOLUTE AUTO 0.85 K/mm3 (0.84-5.20); LYMPHOCYTES PERCENT AUTO 11 % (21-46); MONOCYTES ABSOLUTE AUTO 0.74 K/mm3 (0.16-1.47); MONOCYTES PERCENT AUTO 10 % (4-13); Mean Corpuscular HGB 29.9 pg (26.0-34.0); Mean Corpuscular HGB Conc 30.4 g/dL (31.5-36.5); Mean Corpuscular Volume 98 fL (80-100); Mean Platelet Volume 9.9 fL (9.1-12.4); NEUTROPHILS ABSOLUTE AUTO 5.73 K/mm3 (1.96-9.15); NEUTROPHILS PERCENT AUTO 75 % (41-73); Platelet Count 245 K/mm3 (150-400); RDW Coefficient Variation 15.9 % (11.7-14.2); RDW Standard Deviation 57.8 fL (35.1-46.3); Red Blood Cell Count 3.84 M/mm3 (4.30-5.90)
[2019-12-02 00:37] LABS: Anion Gap 1 mmol/L (6-16); Blood Urea Nitrogen 26 mg/dL (8-24); Bun/Creatinine Ratio 30.2 (12.0-20.0); CO2, Blood 28 mmol/L (21-32); Chloride, Blood 118 mmol/L (98-108); Creatinine, Blood 0.86 mg/dL (0.60-1.20); Glomerular Filtration Rate >60 (60-); Glucose, Blood 91 mg/dL (70-99); Potassium, Blood 4.7 mmol/L (3.5-5.5); Sodium, Blood 147 mmol/L (136-145)
--- NOTE | 2019-12-02 00:54 | NUR ---
PSYCH CONSULT FAXED TO EMERGENCY DEPT.
--- NOTE | 2019-12-02 03:40 | NUR ---
SHIFT SUMMARY PATIENT HAD NO ACUTE CHANGES OBSERVED. AXO X 2-3 WITH NO MONTH OR PRESIDENT. HX DEMENTIA. BEDREST. PSYCH CONSULT FAXED TO ED. MADE INAPPROPRIATE REMARK TO FEMALE REFUGE WORKER PER ANOTHER RN. PIV REMAINS INTACT. VSS/AFEBRILE. REPORTED BACK PAIN X ONE AND ULTRAM 50 MG GIVEN PER EMAR. REPORTS SMOKING MARIJUANA DAILY. ON ROOM AIR. NICODERM PATCH IN PLACE. CALL LIGHT IN REACH. BED IN LOWEST POSITION. WILL CONTINUE TO MONITOR UNTIL DAY SHIFT NURSE ASSUMES CARE.
--- NOTE | 2019-12-02 12:57 | NUR ---
PT IS A/O X2, MAKES BIZZARE, GRANDIOSE STATEMENTS @ X'S. HE IS @ X'S VERY RUDE, DISRESPECTFUL TO STAFF, OBSCENE LANGUAGE. THROWS TANTRUMS FOR REASONS UNKNOWN, HAS THROWN HIS FOOD ALL OVER ROOM. ATTEMPTS TO PACIFY HIM UNSUCCESSFUL. ATTEMPTS TO REDIRECT UNSUCCESSFUL. DR VÁSQUEZ IN FOR PSYCHE CONSULT HOWEVER PT REFUSE, REQUEST DR OUT OF HIS ROOM. DR NGUYEN KNOWS PT WELL, WILL ADJUST MEDS & MX FOR IMPROVEMENT.
--- NOTE | 2019-12-02 16:45 | NUR ---
SUMMARY PT IS A/O X2-3. HX BIPOLAR D/O. HE HAS DISPLAYED IRRATIONAL BEHAVIOR TODAY, MAKES BIZZARE, GRANDIOSE STATEMENTS. @ X'S HE HAS HAD TEMPER OUTBURSTS, YELLING, VERBALLY ABUSIVE, THROWING FOOD & OTHER ITEMS--NONREDIRECTABLE. @ OTHER X'S HE HAS BEEN CALM, PLEASANT, APOLOGETIC. LABILE BEHAVIOR. DR VÁSQUEZ HAS BEEN CONSULTED, ADJUST MEDS. HAVE GIVEN PRN SEROQUEL X2 TODAY. PT STATE UNABLE TO AMBULATE @ THIS TIME, PAIN W MOVEMENT, HAVE GIVEN ULTRAM X2 TODAY. SCATTERED SCABS, ABRASIONS, BRUISES. R HAND RED, SWOLLEN. HE IS INCONT, IN ATTENDS. COMPLETE BEDBATH GIVEN TODAY. VSS, ON RA. PT WILL TRANSFER TO SCU RM [id number], REPORT GIVEN.
--- NOTE | 2019-12-02 16:50 | NUR ---
PT IS A/OX2, PLEASANT AND COOPERATIVE WHEN AWAKE, PT IS UP ON THE SIDE OF THE BED AND IN THE CHAIR FOR MEALS, PT APPEARS TO BE BREATHING EASILY ON RA, PT WAS UP TO THE BATHROOM AND REPORTED HAVING A BM, PT HAS BEEN TAKING THE ORDERED LACTULOSE, THE PT HAS SLEPT FOR MOST OF THE DAY CALL LIGHT IN REACH
--- NOTE | 2019-12-02 17:00 | NUR ---
ASSUMED THE PTS CARE, REPORT WAS TAKEN FROM MIRIAM PALMA, THE PT IS ASLEEP AT THIS TIME, CALL LIGHT IN REACH, WILL CONTINUE TO MONITOR AND ASSESS FOR CHANGES
[2019-12-02] MEDS ORDERED: ZOLP10 PO (17:08)
[2019-12-02] MEDS ORDERED: Lithium Carbon600 MG PO (17:08)
--- NOTE | 2019-12-02 20:24 | NUR ---
PT HAS REFUSED VS, AGGITATED/ANGRY
--- NOTE | 2019-12-02 21:24 | NUR ---
PT has been labile, verbally abusive, throws fluids on floor repeatedly. Calls RN multiple vulgar terms on verbally abusive tyraide. He yells racially and sexually demeaning slurs at RN and WORKERS COMPENSATION CLAIMS ASSISTANT. He chews up food spits it into hand and throws it across the room. I did manage to get HS rx and tylenol 650 mg into PT. 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 Assess for effect of litobid and seroquel as well as tylenol.
--- NOTE | 2019-12-02 21:26 | NUR ---
PT HAS HAD AN INCREASE IN AGGITATION AND ACTING OUT. HAS BEGUN THROWING BEVERAGES AND FOOD ITEMS AROUND ROOM, SHOUTING VULGARITIES AT STAFF.
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
--- NOTE | 2019-12-03 05:33 | NUR ---
PT REFUSED ATTENDS CHANGE AND CARE AT THIS TIME, AGGITATION INCREASED, PT THROWING BEVERAGES AND OBJECTS AT NURSE AND RESIDENCE LIFE COORDINATOR.
--- NOTE | 2019-12-03 05:56 | NUR ---
PT HAS REFUSED VS
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
--- NOTE | 2019-12-03 17:57 | NUR ---
SUMMARY PT RESTING QUIETLY IN BED, PT HAS HAD A LABILE MOOD T/O THE DAY, CAN BE VERY PLEASANT AND COOPERATIVE WITH CARE, THEN CAN SWITCH MOODS VERY QUICKLY AND CAN BE VULGAR AND VERBALLY ABUSIVE, HAS BEEN APOLOGETIC AFTER HIS OUTBURSTS TODAY, PT'S SPEECH IS DIFFICULT TO UNDERSTAND AT TIMES DUE TO POOR DENTITION AND SLURRED SPEECH, THIS MAKES THE PT FRUSTRATED AND CAN LEAD TO OUTBURSTS OF ANGER, PT NEEDS FREQUENT REMINDERS TO SPEAK SLOWLY AND CLEARLY SO STAFF CAN UNDERSTAND HIM, PT DOES REFUSE CARE AT TIMES, EDUCATED PT ABOUT THE IMPORTANCE OF HYGEINE AND SKIN CARE, DISCHARGE PLANNING WORKING ON A SAFE DISCHARGE PLAN, VSS, WILL CONTINUE TO MONITOR
--- NOTE | 2019-12-03 19:17 | NUR ---
pt cussing at this RN at shift change, tells day RN he has a ring worth 5 million dollars that she can take it home with her. Wearing a pink ring on cord around neck. when she asked where got it said from a bum. Then able to call and make several requests. Poor dentation asks for vegetables to eat. Offered yogurt, provided ice water. Poor hygiene has food smeared on chest declines wipe to clean off.
--- NOTE | 2019-12-03 20:41 | NUR ---
PT HAS REFUSED TO HAVE ATTENDS AND LINEN CHANGED. AGGRESSIVE AND AGGITATED
--- NOTE | 2019-12-03 22:06 | NUR ---
PT alternates between verbally abusive with posturing and threats and delusions of grandiure such as my necklace is worth 6 million dollars. He refused repeatedly to have wet attends changed, reapproached multiple times finally after medication with a prn 50 mg seroquel and ultram 50 mg and tylenol he finally let 2 staff change his attends incontinent of large amts of bowel & bladder. He says he has had 50 inches of small intestines removed. PT co gen pain rt hip pain radiates & is sharp. PT says he has been 7 times, says he is going to buy a big house. 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 Crushed meds to assure PT did not spit any out. He took soft foods and drank ensure supplements with set up.
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
--- NOTE | 2019-12-04 05:26 | NUR ---
PT REFUSED TO HAVE ATTENDS CHANGED
--- NOTE | 2019-12-04 06:27 | NUR ---
PT continues on remote camera monitor due to potential for violence, abusive bahaviors towards staff. He is also on fall precautions and did not attempt to leave bed. Intermittantly he did have his legs positioned off bed. Resting quietly after being medicated for pain and agitation. Speech garbled and difficult to understand. Continues to have skin at risk from pressure and moisture damage & he is unable to perform personal hygiene or reposition himself in bed. He has mental problems with refusals and intermittant explosive behaviors better on scheduled & PRN meds. PT has delusions and maladaptive coping. Psychosocial issues substance abuse issues mobility and housing issues. SW referral for assist with dc planning.
--- NOTE | 2019-12-04 17:29 | NUR ---
SUMMARY PT AWAKE IN BED WATCHING TV, PT HAS BEEN COOPERATIVE WITH CARE T/O THE DAY, PT DOES SWEAR A LOT, SPEECH SOMETIMES DIFFICULT TO UNDERSTAND, PT RESTS QUIETLY WHEN LEFT ALONE, VSS, NO ACUTE CHANGES, WILL CONT TO MONITOR
--- NOTE | 2019-12-04 20:37 | NUR ---
PT SWORE AT FOOD AND NUTRITION SERVICES ASSISTANT AND USED INAPPORIATE NAME CALLING AND TOLD HER TO GET OUT. FOOD AND NUTRITION SERVICES ASSISTANT WENT OUT OF THE ROOM. I WAS STILL IN THE ROOM. PT CALMED DOWN AND PT SAID THAT HE APOLOGIZIES FOR HIS PREVIOUS BEHAVIOR. PT WAS IN PAIN IN BILATERAL SHOULDERS. MEDICATED FOR PAIN PER EMAR. PT LIKES TO DRINK MILK. MILK WAS GIVEN AND PT BECAME MORE PLEASANT.
--- NOTE | 2019-12-04 22:09 | NUR ---
PT DEMANDED CHEESE AND CRACKERS. I OFFERED PT CRACKERS BUT PT GOT MAD AND THREW CRACKERS ON THE FLOOR. HE ALSO THREW HIS DRINKS AND SPILLED ALL OVER THE FLOOR. PT WAS VERBALLY ABUSIVE TO ME BEFORE HE REALIZED I WAS HIS NURSE AND RECOGNIZED ME. HE THEN SAID "OH IT'S YOU, I LIKE YOU" AND ASKED ME IF I WAS . I ASKED HIM IF I COULD CHANGE HIS BREIF TO WHICH HE RESPONDED WITH "YOU CAN DO WHATEVER YOU WANT". RENETTA BENITEZ, CAME IN TO HELP ME CHANGE PT I NEED ANOTHER STAFF TO ASSIST ME. HE THEN TOLD ME AND TIRE ADJUSTER TO GET OUT AND WAS VERY VERBALLY ABUSIVE, PT ANGER WAS ESCALATING. WE LEFT THE ROOM.
--- NOTE | 2019-12-05 05:51 | NUR ---
CLINICAL DOCUMENTATION NURSE SUMMARY PT SLEPT WELL TONIGHT. RENETTA-ELI AND I WERE ABLE TO GET A SET OF VITALS ON HIM THIS MORNING. PT FINALLY AGREED TO BEING CHANGED. I EXPLAINED TO PATIENT EACH STEP OF WHAT WE WERE GOING TO DO AND GAVE HIM WORDS OF ENCOURAGEMENT. PT DEMANDED A SANDWICH WHICH I GOT FOR HIM ALONG WITH MILK HIS FAVORITE DRINK. PT GOT MAD I DID NOT HAVE THE RIGHT PERCENT MILK. WE DID NOT HAVE THE OTHER KIND IN THE PANTRY. I LEFT ROOM TO GIVE PT SPACE. PT CUSSED OUT AND THREW MILK ON FLOOR. VSS. CALL FORD WITHIN REACH.
--- NOTE | 2019-12-05 17:42 | NUR ---
PT WITH VERY LABILE MOOD, THIS MORNING HE WAS CUSSING AND ORDERING EVERYONE OUT OF HIS ROOM, MID SENTENCE HE BECAME PLEASANT AND COOPERATIVE. HE HAS COOPERATED WITH CARE AND MEDS T/O THE SHIFT, WILL CONTINUE TO MONITOR AND REPORT TO ONCOMING RN
--- NOTE | 2019-12-06 00:40 | NUR ---
12/06/19 0040 PT CONTINUES TO SLEEP WELL THIS NIGHT. BED ALARM ON.
--- NOTE | 2019-12-06 02:15 | NUR ---
12/06/19 0155 PT AWAKENED TO REPOSITION AND CHANGE INCONTINENT BRIEF. AT FIRST HE REFUSED BRIEF CHANGED BUT RN INSISTED THAT HE NEEDED IT CHANGED AND HE RELUCTANTLY ALLOWED IT. IRRITABLE AND AGITATED AND VERBALLY ABUSIVE TO TIME STUDY STATISTICIAN AND RN. SEE MAR FOR MED GIVEN FOR AGITATION. SIPS OF MILK GIVEN.
--- NOTE | 2019-12-06 07:28 | NUR ---
12/06/19 0620 AWAKENED FOR REPOSITIONING AND INCONTINENT BRIEF CHANGE. BED LINEN SOAKED AND ENTIRE BED LINENS CHANGED WELL. PARTIAL BATH GIVEN. NO OTHER ISSUES FOR NOW. SLEPT WELL THIS SHIFT.
--- NOTE | 2019-12-06 19:15 | NUR ---
SHIFT SUMMARY: NO ACUTE CHANGES TO REPORT THIS SHIFT. PT HX DEMENTIA/ BIPOLAR I; A&OX2-3. OCC OUTBURSTS INCLUDING THROWING DISHES & FOOD; MEDICATED FOR AGITATION & PAIN PER EMAR. AWAITING GUARDIANSHIP PROCEEDINGS. REPORT GIVEN TO ONCOMING RN.
--- NOTE | 2019-12-07 03:24 | NUR ---
STEMHOLE BORER AND TOPPER SUMMARY Patient slept most of shift after HS. Alert to self only. Unsure where he is or situation that brought him here. Very cooperative with care. Lots of snacking. Patient wasn't at all labile overnight. Very confused about circumstances or purpose of hospitalization. Very poor historian. Abd firm and distended with what looks like a hernia between lower quadrants.
--- NOTE | 2019-12-07 14:07 | NUR ---
patient is refusing to have gown and linen changed despite urinating on the bed. yelling at staff to get the fuck out and dont touch anything.
--- NOTE | 2019-12-08 04:44 | NUR ---
SUCTION OPERATOR SUMMARY Patient very pleasantly confused but cooperative with care at beginning of shift. Very grandiose ideas about plans to rebuild his house in [place] and find a to live there. Huge pasty odorous BM around midnight, then the patient requested and ate a snack and fell back to sleep. When he awoke around 0200, He was angry and threatening with the MANAGER THERAPY, ripped of his blood pressure cuff refusing vitals and gestured like he was going to throw his water pitcher at her. Minimal complaints of pain overnight with exception of chronic bilateral shoulder pain and R. Hip pain secondary to recent fall and hip surgery. both were relieved with HS dose of Tylenol.
[2019-12-08 11:26] LABS: BASOPHILS ABSOLUTE AUTO 0.03 K/mm3 (0.00-0.23); BASOPHILS PERCENT AUTO 0 % (0-2); EOSINOPHILS ABSOLUTE AUTO 0.22 K/mm3 (0.00-0.68); EOSINOPHILS PERCENT AUTO 2 % (0-6); Hematocrit 39.7 % (37.0-53.0); Hemoglobin 12.4 g/dL (13.5-17.5); IMMATURE GRAN ABSOLUTE AUTO 0.02 K/mm3 (0.00-0.10); IMMATURE GRAN PERCENT AUTO 0 % (0-1); LYMPHOCYTES PERCENT AUTO 9 % (21-46); MONOCYTES ABSOLUTE AUTO 1.18 K/mm3 (0.16-1.47); MONOCYTES PERCENT AUTO 13 % (4-13); Mean Corpuscular HGB Conc 31.2 g/dL (31.5-36.5); Mean Corpuscular Volume 96 fL (80-100); Mean Platelet Volume 9.8 fL (9.1-12.4); NEUTROPHILS ABSOLUTE AUTO 6.74 K/mm3 (1.96-9.15); NEUTROPHILS PERCENT AUTO 75 % (41-73); Platelet Count 206 K/mm3 (150-400); RDW Coefficient Variation 15.3 % (11.7-14.2); RDW Standard Deviation 53.9 fL (35.1-46.3); Red Blood Cell Count 4.13 M/mm3 (4.30-5.90); White Blood Cell Count 8.99 K/mm3 (4.00-11.30)
[2019-12-08 11:45] LABS: Anion Gap 3 mmol/L (6-16); Blood Urea Nitrogen 28 mg/dL (8-24); Bun/Creatinine Ratio 28.5 (12.0-20.0); CO2, Blood 24 mmol/L (21-32); Calcium, Blood 9.8 mg/dL (8.5-10.1); Chloride, Blood 114 mmol/L (98-108); Creatinine, Blood 0.98 mg/dL (0.60-1.20); Glomerular Filtration Rate >60 (60-); Glucose, Blood 89 mg/dL (70-99); Potassium, Blood 4.5 mmol/L (3.5-5.5); Sodium, Blood 141 mmol/L (136-145)
--- NOTE | 2019-12-08 12:00 | NUR ---
PATIENT REFUSING ADL'S/CURSING PATIENT FREQUENTLY REFUSES TO BE REPOSITIONED OR TO HAVE HIS BRIEF CHANGED WHEN IT IS SOILED. PATIENT ALSO THREW HIS BREAKFAST TRAY ACROSS THE ROMM SHATTERING IT. PATIENT CURSES AT STAFF. PATIENT HAS BEENSWITHCED TO PAPER TRAYS.
--- NOTE | 2019-12-08 16:31 | NUR ---
SHIFT SUMMARY PATIENT MEDICATED X1 FOR PAIN AND LOW GRADE FEVER. PATIENT DENIES NAUSEA AND SHORTNESS OF BREATH. PATIENT MOOD VERY LABILE. PATIENT CURSES AT STAFF AT TIMES AND THREATENS TO THROW FOOD AND ITEMS ON TABLE. PATIENT SWITCHED TO PAPER TRAYS. PATIENT CAN BE COOPERATIVE WITH CARE AT TIMES. CALL LIGHT IN REACH.
--- NOTE | 2019-12-08 18:05 | NUR ---
PATIENT THROWING TRAYS PATIENT THREW DINNER TRAY ON FLOOR BECAUSE DINNER DID NOT HAVE ONIONS ON IT. PATIENT THEN REQUESTED NEW TRAY WHILE CALLING STAFF NAMES AND CURSING. PATIENT HAS THROWN TRAY TWICE TODAY THEN MOCKED STAFF WHILE STAFF CLEANED THE MESS. RN DECLINED NEW TRAY REQUEST AND INFORMED PATIENT WE CAN ORDER HIM A SNACK LATER WHEN HE HAS CALMED DOWN.
--- NOTE | 2019-12-09 04:41 | NUR ---
INTERNAL COMBUSTION ENGINE ASSEMBLER SUMMARY Patient again, labile with staff. Although he did seem a bit more cooperative at night over the weekend. Minimal complaints of pain. All complaints were of chronic bilat shoulder pain, and right hip pain when he had to roll onto it during bed changes. Tylenol apparently worked well each time he received it over the weekend. Extremely large mushy/claylike incont stool for the second night in a row. Slept fairly well, waking several times to call for snacks. Very confused. Difficult to reorient .
[2019-12-09 05:14] LABS: BASOPHILS ABSOLUTE AUTO 0.03 K/mm3 (0.00-0.23); BASOPHILS PERCENT AUTO 0 % (0-2); EOSINOPHILS ABSOLUTE AUTO 0.26 K/mm3 (0.00-0.68); EOSINOPHILS PERCENT AUTO 3 % (0-6); Hematocrit 40.9 % (37.0-53.0); Hemoglobin 12.2 g/dL (13.5-17.5); IMMATURE GRAN ABSOLUTE AUTO 0.03 K/mm3 (0.00-0.10); IMMATURE GRAN PERCENT AUTO 0 % (0-1); LYMPHOCYTES ABSOLUTE AUTO 0.98 K/mm3 (0.84-5.20); LYMPHOCYTES PERCENT AUTO 11 % (21-46); MONOCYTES ABSOLUTE AUTO 0.98 K/mm3 (0.16-1.47); MONOCYTES PERCENT AUTO 11 % (4-13); Mean Corpuscular HGB 29.3 pg (26.0-34.0); Mean Corpuscular HGB Conc 29.8 g/dL (31.5-36.5); Mean Corpuscular Volume 98 fL (80-100); NEUTROPHILS ABSOLUTE AUTO 6.46 K/mm3 (1.96-9.15); NEUTROPHILS PERCENT AUTO 74 % (41-73); Platelet Count 234 K/mm3 (150-400); RDW Coefficient Variation 15.4 % (11.7-14.2); RDW Standard Deviation 55.8 fL (35.1-46.3); Red Blood Cell Count 4.17 M/mm3 (4.30-5.90); White Blood Cell Count 8.74 K/mm3 (4.00-11.30)
[2019-12-09 05:33] LABS: Alanine Aminotransfer (ALT/SGP 15 U/L (12-78); Albumin, Blood 2.5 g/dL (3.4-5.0); Albumin/Globulin Ratio 0.7 (0.8-1.8); Alk Phos 73 U/L (50-136); Anion Gap 3 mmol/L (6-16); Aspartate Aminotrans (AST/SGOT 14 U/L (12-37); Bilirubin, Total 0.3 mg/dL (0.1-1.0); Blood Urea Nitrogen 24 mg/dL (8-24); Bun/Creatinine Ratio 26.8 (12.0-20.0); CO2, Blood 25 mmol/L (21-32); Calcium, Blood 9.9 mg/dL (8.5-10.1); Chloride, Blood 115 mmol/L (98-108); Globulin, Blood 3.4 g/dL (2.2-4.0); Glomerular Filtration Rate >60 (60-); Glucose, Blood 86 mg/dL (70-99); Potassium, Blood 4.3 mmol/L (3.5-5.5); Sodium, Blood 143 mmol/L (136-145); Total Protein, Blood 5.9 g/dL (6.4-8.2)
--- NOTE | 2019-12-09 17:25 | NUR ---
SHIFT SUMMARY CONTINUES TO BE CONFUSED. PLEASANT TODAY. FLIGHT OF IDEAS WHEN TALKING WITH PALLIATIVE CARE. NO ACUTE CHANGES NOTED.
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
--- NOTE | 2019-12-09 19:15 | NUR ---
ASSUMED CARE RECEIVED REPORT FROM ALESHA RN. ASSUMED CARE OF PT. RESTING COMFORTABLY AT THIS TIME, APPEARS IN GOOD SPIRITS. NO S/S ACUTE DISTRESS NOTED. PT CONVERSING APPROPRIATELY WITH STAFF AT THIS TIME. CALL LIGHT, POSSESSIONS IN REACH, BED IN LOWEST POSITION WITH BED ALARM ACTIVATED. WILL CONTINUE TO MONITOR.
--- NOTE | 2019-12-09 20:46 | NUR ---
PT AND STAFF INTERACTION: LATE ENTRY-2045 2 RNS IN PT ROOM, PRIMARY RN ADMINISTERING MEDICATIONS. PT CONVERSING WITH STAFF, RNS EXPLAINING CARE. PT USING COLORFUL LANGUAGE DIRECTED TOWARDS STAFF. PRIMARY RN EXPLAINED TO PT THAT LANGUAGE AND BEHAVIOR IS INAPPROPRIATE AND REINFORCED RATIONALE FOR CARE PROVIDED. PT CONTINUING TO USE COLORFUL LANGUAGE, FOLLOWED BY AN APOLOGY. PT IN GOOD SPIRITS, REQUESTED TEA TO DRINK. CONDOM CATHETER SECURED AND DRAINING AT THIS TIME, ATTENDS IN PLACE. CALL LIGHT, POSSESSIONS IN REACH, BED IN LOWEST POSITION WITH BED ALARM ACTIVATED. WILL CONTINUE TO MONITOR.
--- NOTE | 2019-12-09 23:46 | NUR ---
LATE ENTRY @ 2199 ATTEMPTED TO ASSIT PATIENT WITH BED CHANGE AND PERSONAL CARE. PATIENT WAS UPSET AND YELLING HE STARTED CALLING ME NAMES AND TOLD ME TO LEAVE HIS ROOM.I INFORMED THE PATIENT THAT HIS TYPE OF LANUAGE WAS NOT ACCEPTABLE AND I WOULD RETURN ONCE HE HAD CALMED DOWN. THE PATIENT AGAIN ASKED ME TO ASSIT HIM @ 2229. ONCE AGAIN THE PATIENT WAS YELLING AT ME DEMANDING I TREAT HIM BETTER. THE PATIENT TOLD ME TO LEAVE HIS ROOM AND NOT RETURN.
--- NOTE | 2019-12-10 07:15 | NUR ---
SHIFT SUMMARY PT RESTING COMFORTABLY, NO S/S ACUTE DISTRESS NOTED. IN GOOD SPIRITS, APPROPRIATE WITH STAFF. DENIES NEEDS AT THIS TIME, CALL LIGHT, POSSESSIONS IN REACH, BED IN LOWEST POSITION WITH ALARM ON. REPORT GIVEN TO DAYSHIFT RN.
--- NOTE | 2019-12-10 18:05 | NUR ---
SHIFT SUMMARY PT MEDICATED PRN FOR AGITATION ONCE THIS SHIFT. PT VERY LABILE. CUSSES AND THROWS THINGS IN ROOM WHEN AGITATED. PT PULLED OFF CONDOM CATH AND REFUSED TO HAVE IT REPLACED AT THIS TIME. ATTENDS CHANGED TWICE SINCE CONDOM CATH REMOVED. NO OTHER CHANGES IN ASSESSMENT AT THIS TIME. VSS. WILL CONTINUE TO MONITOR UNTIL TURNOVER IS COMPLETE.
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
--- NOTE | 2019-12-11 12:38 | NUR ---
INCREASE IN AGITATION. PT HAS BEEN HAVING DELUSIONS MOST THE MORNING ABOUT AN INVENTION THAT HE SAYS HE IS GOING TO INVENT. PT HAS JULIETA AND ADAM LAID OUT ON HIS BEDSIDE TABLE AND THINKS THAT THEY ARE HIS WRITTEN PLANS FOR INVENTION. PT STATED THAT IT CANNOT BE ERASED AND BECAME ANGRY WHEN STAFF ASKED IF IT COULD BE CLEANED UP. PT STATED CUSSING AT THIS RN AND AIDE. FLIPPING US OFF. PT CALLED THIS RN A "CUNT". THIS RN TOLD THE PATIENT THAT THIS BEHAVIOR IS UNACCEPTABLE AND THAT HE CANNOT TREAT STAFF LIKE THIS. PT BECAME MORE ANGRY. THIS RN STATED WE WILL COME BACK WHEN HE HAS CALMED DOWN AND SHUT DOOR. PT THREW WATER JUG AT DOOR. SECRUITY CALLED TO TALK WITH PT. SECURITY, BOOGIE, SPOKE WITH PT AND REMINDED HIM THAT THIS BEHAVIOR IS UNACCEPTABLE. PT LEFT IN ROOM WITH DOOR SHUT TO CALM DOWN.
--- NOTE | 2019-12-11 17:06 | NUR ---
PT REFUSAL TO BE CHANGED. PT HAS REFUSED TO BE CHANGED SEVERAL TIMES TODAY. PT STATED THAT HE WILL LET US CHANGE HIM AFTER HE FINISHES HIS DRINKS. WILL ATTEMPT TO CHANGE PT WHEN HE IS FINISHED.
--- NOTE | 2019-12-11 17:36 | NUR ---
SHIFT SUMMARY PT HAD ONE SPELL OF AGITATION AND AGRESSION THIS SHIFT. PT LATER APPOLOGIZED FOR HIS BEHAVIOR. PT HAS CONTINUED TO REFUSE BREIF CHANGES. NO OTHER ACUTE CHANGES IN PT CONDITION AT THIS TIME. VSS. WILL CONTINUE TO MONITOR UNTIL TURNOVER IS COMPLETE.
--- NOTE | 2019-12-12 04:27 | NUR ---
SHIFT SUMMARY PT HAD FALL THIS SHIFT DURING AN INCONT CHANGE W/SOCIAL SERVICES SPECIALIST @ BEDSIDE, PT BECAME ANGRY & VERBALLY ABUSIVE BRIEFLY AFTER FALL THEN QUICKLY APPOLOGIZED AFTERWARD. PT WAS PLEASTANT & COOPERATIVE W/CARE T/O SHIFT, NO OTHER C/O ANY KIND, PT SLEEPING AT THIS TIME, CALL LIGHT IN REACH, BED ALARM ACTIVE, WILL CONT TO MONITOR UNTIL REPORT GIVEN TO DAY RN.
--- NOTE | 2019-12-12 07:32 | NUR ---
REMOTE MONITORING THIS RN VERIFIED WITH REMOTE MONITOR THAT CAMERA IS ON.
--- NOTE | 2019-12-12 16:37 | NUR ---
Shift Summary A/O to self. Patient has been pleasant towards this RN this shift, did show aggressive behavior at the start of shift toward CONTRACT DESIGN AGENT as evidence by patient calling CONTRACT DESIGN AGENT "cunt". Continues to refuse changing of briefs and repositioning despite education on needing to keep skin clean to prevent skin breakdown. C/O mild R ribcage pain d/t sustaining a fall the previous shift, but after x-ray revealed no broken bones, patient has not c/o any more pain. No SOB or dyspnea noted, no guarding behavior. Patient is delusional stating his dad is Errol Min and that he is Filiberto Pako. No other acute changes this shift. Will continue to monitor.
--- NOTE | 2019-12-13 05:30 | NUR ---
SHIFT SUMMARY PT HAS HAD NO ACUTE CHANGES THIS SHIFT, NO C/O ANY KIND, PT HAS BEEN APPROPIATE & COOPERATIVE W/CARE T/O SHIFT, INCONT CHANGES & REPOS Q2, PT SLEEPING AT THIS TIME, CALL LIGHT IN REACH, BED ALARM ACTIVE, WILL CONT TO MONITOR UNTIL REPORT GIVEN TO DAY RN.
--- NOTE | 2019-12-13 08:03 | NUR ---
REMOTE MONITORING VERIFIED WITH LAN THAT REMOTE MONITORING IS ON FOR THIS PATIENT
--- NOTE | 2019-12-13 16:56 | NUR ---
Shift Summary Patient had a rough start, becomes easily agitated when awoken by staff for vitals and threatened to throw things at this RN when attempted to ask questions during shift assessment. Patient became much more pleasant and even apologized for his behavior as the day progressed. He has remained calm through the day. 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 Calls appropriately for food items, does not call staff when requiring brief changes from being soiled, though he has been compliant with brief changes today moreso than yesterday. Mepilex to left hip intact. Will continue to monitor.
--- NOTE | 2019-12-13 21:32 | NUR ---
PATIENT RESTING IN BED. NO SIGNS OF AGRESSION AND AGITATION. COOPERATIVE WITH ASSESSMENT AND MEDICATION ADMINISTRATION. WATCHING TV. CALL LIGHT IN REACH.
--- NOTE | 2019-12-14 03:54 | NUR ---
SHIFT SUMMARY PATIENT HAD NO ACUTE CHANGES OBSERVED. AXO X 2-3 AND FORGETFUL AT TIMES. MOMENTS OF DELUSIONS. HX DEMENTIA. TAKES MEDICATION WHOLE WITH WATER. NO IV ACCESS. DENIES PAIN, SOB, AND N/V. VSS/AFEBRILE. NO AGRESSION OR AGITATION NOTED THIS SHIFT. COOPERATIVE WITH CARE. CALL LIGHT IN REACH. BED IN LOWEST POSITION AND ALARM ACTIVATED. WILL CONTINUE TO MONITOR UNTIL DAY SHIFT NURSE ASSUMES CARE.
--- NOTE | 2019-12-14 16:33 | NUR ---
SHIFT SUMMARY PT HAS BEEN PLEASANT AND CO-OP TODAY WITH ALL CARE, SO FAR. INCONTINENT OF URINE AND DENIES NEEDING CHANGED WHEN WET; PT PULLED CONDOM CATH OFF PRIOR TO THIS SHIFT. UP TO SHOWER CHAIR FOR SHOWER TODAY. LINENS CHANGED. CONDOM CATH REPLACED WHEN BACK TO BED. HAS BEEN AWAKE OFF AND ON WATCHING TV AND OR TAKING NAPS BETWEEN MEALS. NO C/O PAIN. DENIES NEEDS MOST OF THE TIME. RH SLIGHTLY SWOLLEN; PT REPORTED HX OF FX. PT REPORTED SWELLING DOWN FROM WHAT IT WAS. DR FERNANDO HERE TO SEE PT THIS AM. PT HAS BEEN HOMELESS AND IN/OUT OF HOSPITAL; PT CONTINUES TO WAIT PLACEMENT AT THIS TIME. BED ALARM ON FOR SAFETY. CALL LT IN REACH.
--- NOTE | 2019-12-15 04:37 | NUR ---
SHIFT SUMMARY PATIENT HAD NO ACUTE CHANGES OBSERVED. AXOX 2-3 FORGETFUL AND DELUSIONAL AT TIMES. HEAVY TWO PERSON STAND PIVOT TO CHAIR AND REPORTS HE HAS NOT BEEN WALKING. BEDREST OTHER TIMES. INCONTINENT OF URINE/BOWEL. DENIES PAIN, SOB, AND N/V. VSS/AFEBRILE. WATCHED TV FIRST PART OF SHIFT AND AGAIN NOW. NO IV ACCESS. NO AGRESSIVE/AGITATED BEHAVIORS NOTED THIS SHIFT. CALL LIGHT IN REACH. BED IN LOWEST POSITION AND BED ALARM ACTIVATED. WILL CONTINUE TO MONITOR UNTIL DAY SHIFT NURSE ASSUMES CARE.
--- NOTE | 2019-12-15 12:40 | NUR ---
NO ACUTE CHANGES TO PRESENT THIS SHIFT. PT HAS BEEN PLEASANT AND CO-OP WITH CARE AGAIN TODAY. EATING AND DRINKING WELL. APPEARS TO FEEL BETTER. RH SWELLING A LITTLE MORE IMPROVED FROM YESTERDAY. CALL LT IN REACH. ABLE TO MAKE NEEDS KNOWN. DR FERNANDO IN TO SEE PT THIS AM. NO NEW ORDERS RECEIVED. PT CONTINUES TO WAIT PLACEMENT.
--- NOTE | 2019-12-15 17:50 | NUR ---
NO ACUTE CHANGES. PT ACTUALLY PLEASANT WITH STAFF THIS SHIFT.
--- NOTE | 2019-12-16 04:02 | NUR ---
SHIFT SUMMARY PATIENT HAD NO ACUTE CHANGES OBSERVED. AXOX 2-3 WITH CONFUSION AT TIMES. MINIMAL DELUSIONAL STORIES THIS SHIFT. BEDREST AND TAKES MEDICATION WHOLE WITH WATER. VSS/AFEBRILE. DENIES PAIN, SOB, AND N/V. NO AGRESSIVE BEHAVIOR OR AGITATION NOTED. NO IV ACCESS. INCONTINENT OF BOWEL/BLADDER. ABLE TO SLEEP MOST OF THE SHIFT WITH LIMITED TV TIME. CALL LIGHT IN REACH. BED IN LOWEST POSITION AND BED ALARM ACTIVATED. WILL CONTINUE TO MONITOR UNTIL DAY SHIFT NURSE ASSUMES CARE.
--- NOTE | 2019-12-16 18:33 | NUR ---
PATIENT A/OX3, UP WITH FWW AND 1 ASSIST TO CHAIR. NEEDS ENCOURAGEMENT TO GET OOB. PATIENT MOSTLY PLEASANT THIS SHIFT, BUT CAN BE VERBALLY ABUSIVE TO STAFF AT TIMES. GRANDIOSE DELUSIONS, BELIEVES HE IS ROM MORRISON'S SON AND IS A MULIT MILLIONARE. VSS, ON RA. MEPILEX TO L HIP REMAINS C/D/I. DENIES ANY PAIN OR DISCOMFORT. TOLERATING CARDIAC DIET. AWAITING PLACEMENT. CALLS APPROPRIATELY FOR ASSISTANCE.
--- NOTE | 2019-12-17 05:22 | NUR ---
Rn summary; Patient is alert, has some grandiose ideas, states he is related to Karri Goodman. Pt is confused, thinks his family is behind the bathroom door. Pt did have a huge soft incontinent BM this evening. Pt had a good appetite and ate dinner late after waking up. Pt has been very pleasant with no outbursts this shift. Call light is near and pt uses it appropriately. No changes medically.
--- NOTE | 2019-12-17 11:11 | NUR ---
PT REFUSED TO GET UP AT THIS TIME.
--- NOTE | 2019-12-17 16:57 | NUR ---
Initial spiritual care note: Mr. Villa was pleasant and talkative. He told me some wildly imaginative stories. He appeared to enjoy having someone listen. He smiles easily. He is happy to be feeling better and plans to live with a woman he met on the streets once his "multi-million dollar check clears." He is listed as Zoroastrian, but he says he enjoys all denominations. He accepted prayer and expressed gratitude for visit. I will remain available.
--- NOTE | 2019-12-17 17:20 | NUR ---
SHIFT SUMMARY PT SLEPT MOST OF THE DAY AND WAS PLEASANT AT TIMES AND NOT PLEASANT AT OTHERS. RECEIVED SPONGE BATH. VSS. HRR. AFEBRILE. GOOD APPETITE, ATE BREAKFAST AND LUNCH. NO IV. BED ALARM ON.
--- NOTE | 2019-12-18 02:37 | NUR ---
PATIENT IS REFUSING ATTENDS CHANGE SO FAR THIS SHIFT. WILL CONTINUE TO ATTEMPT TO PERSUADE HIM TO LET US DO IT.
--- NOTE | 2019-12-18 04:55 | NUR ---
SHIFT SUMMARY: PT IS ALERT AND ORIENTED WITH NOTABLE CONFUSION. PT NOT OUT OF BED OVERNIGHT. PT MOSTLY AGREEABLE, IS REFUSING ATTENDS CHANGE. PT SLEPT MUCH OF THE NIGHT WHEN NOT DISTURBED. PT DENIES PAIN, NAUSEA, VOMITING, AND SOB. BED IN LOW POSITION, CALL LIGHT WITHIN REACH. WILL CONTINUE TO MONITOR.
--- NOTE | 2019-12-18 09:46 | NUR ---
SLEEPING SOUNDLY THIS MORNING. RESP EVEN AND UNLABORED. CAMERA MONITORING ON. CAN BE AGGITATED AT TIMES.
--- NOTE | 2019-12-18 14:13 | NUR ---
CHANGED ATTENDS. IRRITABLE. CUSSES AT STAFF. LARGE AMOUNT INCONTINENT URINE.
--- NOTE | 2019-12-18 16:18 | NUR ---
REFUSED BOTH MORNING AND EVENING VS. FREQUENTLY SATURATING ATTENDS.
--- NOTE | 2019-12-19 06:29 | NUR ---
SUMMARY PT HAS BEEN COOPERATIVE OFF AND ON T/O SHIFT. PT REFUSES TO BE CHANGED AND TO HAVE VITALS DONE AT TIMES. PT HAS SLEPT W/ OUT ISSUE. PT CURRENTLY SLEEPING AND BREATHING EASY. CALL LIGHT IN REACH AND BED ALARM ON.
--- NOTE | 2019-12-19 17:29 | NUR ---
PATIENT HAS HAD A PRETTY GOOD DAY OVER-ALL. VITALS STABLE. MEDICATIONS ADMINISTERED. COOPERATIVE WITH STAFF. NO ACUTE CHANGES TO REPORT OF AT THIS TIME.
--- NOTE | 2019-12-20 04:41 | NUR ---
HOSPICE COMMUNITY LIAISON SUMMARY NO ACUTE CHANGES THIS SHIFT. PT AAOX3 AND HAS BEEN FAIRLY PLEASANT THROUGH THE SHIFT. PT HAS BEEN COOPERATIVE BUT IS A LITTLE AGITATED AT TIMES. DENIES PAIN, SOB, N/V. HAS RESTED THROUGH MOST OF THE NIGHT. INCONTINENT OF BOWEL/BLADDER. VSS, WILL CONTINUE TO MONITOR.
--- NOTE | 2019-12-20 14:52 | NUR ---
Pt HAS REFUSED TO BE CHANGE 3 TIME SINCE LUNCH TIME,I HAVE OFFERED BUT SAID HE IS STILL EATING EVEN THOUGH HE HAS NOT TOUCHED HIS TRAY IN HOURS.
--- NOTE | 2019-12-20 17:32 | NUR ---
PATIENT IS ALERT AND ORIENTED. HE HAS BEEN PLEASANT TODAY. PATIENT IS INCONTINENT OF BOWEL AND BLADDER, HE CALLS APPROPRIATELY TO BE CHANGED. PATIENT IS BEDBOUND. COMPLAINED OF BACK PAIN TODAY, TREATED PER EMAR. WILL CONTINUE TO MONITOR
--- NOTE | 2019-12-21 04:57 | NUR ---
SHIFT SUMMARY PT'S MOOD VERY LABILE. PT PLEASANT AND COOPERATIVE AT TIMES, OTHER TIMES PT IS ANGRY AND AGGRESSIVE. CURSING AT STAFF AND YELLING AT THEM TO GET OUT. REFUSES CARE AT TIMES. REFUSING ATTENDS CHANGES FREQUENTLY THIS EVENING. PT HEAVILY SATURATES. PT SLEPT MOST OF THE NIGHT AFTER NIGHT TIME MEDICATIONS. PT ANGRY AT START OF SHIFT THAT HE WAS ONLY ORDERED TYLENOL FOR PAIN BUT STATED AFTER NIGHT TIME MEDICATIONS WERE GIVEN THAT THOSE WERE THE MEDICATIONS HE NEEDED. EVEN THOUGH NONE OF THEM WERE PAIN MEDICATIONS. PT HAS GRANDIOSE THINKING. 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 TELLING ME THAT HE HAD A MILLION DOLLARS COMING AND SO DID HIS "PARTNER". PT AWAITING GAURDIANSHIP AND PLACEMENT. VITAL SIGNS STABLE. WILL CONTINUE TO MONITOR.
--- NOTE | 2019-12-21 17:05 | NUR ---
HE IS WATCHING THE NEWS. HE HAS EATEN FAIR TODAY. HE TURNS HIMSELF IN BED EASILY. HE HAS BEEN CHANGED AND BATHED FOR INTERMITTENT INCONTINENCE. NO COMPLAINTS. HE HAS BEEN COOPERATIVE AND IN A GOOD MOOD TODAY.
--- NOTE | 2019-12-22 05:29 | NUR ---
SHIFT SUMMARY: VSS. TEMPS 99.0-99.4. A/OX2-3 W/SOME NOTED CONFUSION. COOPERATIVE W/CARES TONIGHT. MOOD HAS BEEN MOSTLY PLEASANT. PT EVEN JOKING AND LAUGHING W/STAFF. NO THROWING OBJECTS OR FOODS/FLUIDS SO FAR TONIGHT. INCONTINENT OF B/B. REMAINED IN BED. NO ATTEMPTS TO SELF T/F. BED ALARM ON, BED LOW. CALL BUTTON IN REACH. NO ACUTE CHANGES. WILL CONT TO MONITOR.
--- NOTE | 2019-12-22 17:42 | NUR ---
PATIENT CONTINUES TO AWAIT PLACEMENT. X-RAY OF R HIP AND PELVIS DONE TODAY, NO ACUTE FX PER REPORT. PATIENT INCONTIENT OF BOWEL/BLADDER. GOOD BED MOBILITY. UP TO CHAIR WITH 2 MAX ASSIST, PATIENT LACKS MOTIVATION TO DO THIS OFTEN. NO IV SITE. VSS, ON RA.
--- NOTE | 2019-12-23 04:52 | NUR ---
SHIFT SUMMARY PT HAD VERY LARGE SOFT GOMES BOWEL MOVEMENT AT START OF THE SHIFT. INCONTINENT. PT COOPERATIVE WITH ATTENDS CHANGES THIS EVENING AND COOPERATIVE WITH ALL OTHER CARE. PT'S MOOD IS LABILE. MOOD SWINGS LESS SEVERE THIS EVENING. PT DID REPORT R HIP PAIN THIS EVENING, STATING THAT HE ROLLED ONTO THE FLOOR FROM THE BED THIS ADMISSION. UNCLEAR HOW TRUE THIS STATEMENT IS. PT IS CONFUSED TO DATE AND SITUATION OF INCIDENT. TYLENOL GIVEN WITH NIGHT TIME MEDICATIONS WITH GOOD RELIEF. PT SLEPT WELL THROUGHOUT THE NIGHT WHEN NOT BEING WOKEN BY STAFF FOR CARE. VITAL SIGNS STABLE. PT AWAITING PSYCH PLACEMENT. WILL CONTINUE TO MONITOR.
--- NOTE | 2019-12-23 16:06 | NUR ---
ALERT. COOPERATIVE. DENIES ANY PAIN. GOOD APPETITE. UNLABORED RESPIRATIONS. AWAITING PLACEMENT. WCTM
--- NOTE | 2019-12-23 17:19 | NUR ---
TALKED TO @ 6206 ABOUT ABD XRAY SHOWING POSSIBLE COIN IN BOWEL. REQUESTS CONSULT GI. ORDERED. TALKED TO AND HE REQUESTS I VIEW ABD XRAY FOR TOMORROW. PATIENT NOT C/O ANY ABD PAIN THIS SHIFT. WILL FOLLOW.
--- NOTE | 2019-12-24 07:29 | NUR ---
74 year old MAle PT admitted with delusions has had guardianship appointed by Psych & awaiting placement. No agression this shift much better cooperation & communication. Coopertative with psych meds & less resistive with cares
--- NOTE | 2019-12-24 13:58 | NUR ---
LEFT MESSAGE ON 'S VOICE MAIL THAT TYLENOL SEEMS TO HELP RT HIP PAIN, BUT IS ASKING FOR MEDS OFTEN. POSSIBLE ORDER FOR ULTRAM? AWAITING ORDERS
--- NOTE | 2019-12-24 14:10 | NUR ---
LEFT MESSAGE WITH [facility] THAT PATIENT TOOK DULCOLAX, BUT THREW CUP CONTAINING GOLYTLY AND REFUSED REST OF GOLYTLY.
--- NOTE | 2019-12-24 19:14 | NUR ---
ALERT TO SELF. GRADIOSE THOUGHTS--"HAS COIN WORTH 6 MILLION DOLLARS." UNABLE TO GET PATIENT TO TAKE GOLYELY. THROWS GLASS OF FLUID. WHEN ATTEMPT TO GET PATIENT TO TAKE FLUID LATER IN DAY TRIES AND STS WILL NOT TAKE. NEW PAIN MEDS SEEM TO HELP RT LATERAL HIP PAIN. DOES NOT GET OUT OF BED. UNLABORED RESPIRATIONS. REPORT TO NIGHT RN
--- NOTE | 2019-12-25 04:18 | NUR ---
PT is less delusional and very much less agressive or verbally abusive than on admission. He is remimiscing about life in his younger days. Able to communicate and use call jarrell. PT has good appetite good fluid intake. Continues incontinent of bowel & bladder. Voids large amts, continues to refuse toileting. Medicated for chronic RT hip pain with tylenol 650 mg & ultram 50 mg with helpful effect. Refused golytley bowel prep.
[2019-12-25 06:05] LABS: BASOPHILS ABSOLUTE AUTO 0.05 K/mm3 (0.00-0.23); BASOPHILS PERCENT AUTO 1 % (0-2); EOSINOPHILS ABSOLUTE AUTO 0.42 K/mm3 (0.00-0.68); EOSINOPHILS PERCENT AUTO 5 % (0-6); Hematocrit 38.8 % (37.0-53.0); Hemoglobin 11.9 g/dL (13.5-17.5); IMMATURE GRAN ABSOLUTE AUTO 0.11 K/mm3 (0.00-0.10); IMMATURE GRAN PERCENT AUTO 1 % (0-1); LYMPHOCYTES ABSOLUTE AUTO 1.15 K/mm3 (0.84-5.20); LYMPHOCYTES PERCENT AUTO 13 % (21-46); MONOCYTES PERCENT AUTO 12 % (4-13); Mean Corpuscular HGB 29.6 pg (26.0-34.0); Mean Corpuscular HGB Conc 30.7 g/dL (31.5-36.5); Mean Corpuscular Volume 97 fL (80-100); Mean Platelet Volume 9.1 fL (9.1-12.4); NEUTROPHILS ABSOLUTE AUTO 5.98 K/mm3 (1.96-9.15); NEUTROPHILS PERCENT AUTO 69 % (41-73); Platelet Count 365 K/mm3 (150-400); RDW Coefficient Variation 14.9 % (11.7-14.2); RDW Standard Deviation 53.3 fL (35.1-46.3); Red Blood Cell Count 4.02 M/mm3 (4.30-5.90); White Blood Cell Count 8.71 K/mm3 (4.00-11.30)
[2019-12-25 06:20] LABS: Anion Gap 2 mmol/L (6-16); Blood Urea Nitrogen 24 mg/dL (8-24); Bun/Creatinine Ratio 25.7 (12.0-20.0); CO2, Blood 27 mmol/L (21-32); Calcium, Blood 9.6 mg/dL (8.5-10.1); Chloride, Blood 112 mmol/L (98-108); Creatinine, Blood 0.94 mg/dL (0.60-1.20); Glomerular Filtration Rate >60 (60-); Glucose, Blood 93 mg/dL (70-99); Potassium, Blood 4.4 mmol/L (3.5-5.5); Sodium, Blood 141 mmol/L (136-145)
--- NOTE | 2019-12-25 17:02 | NUR ---
PT IS A/OX3, FOR THE MOST PART WAS COOPERATIVE, THE PT DID, HOWEVER, YELL AT THE MEDICAL DOCTOR THIS AM AND REFUSED CARE OFF AND ON T/O THE DAY, THE PTS GUARDIAN CAME IN AND SPOKE WITH HIM TODAY THE PT WAS COOPERATIVE FOR THAT, PT APPEARS TO BE BREATHING EASILY ON RA AT THIS TIME, CALL LIGHT IN REACH, WILL CONTINUE TO MONITOR AND ASSESS FOR CHANGES
--- NOTE | 2019-12-25 19:27 | NUR ---
late entry for 0700 AM 12/25/2019. This RN rounding with PT's female & he was cussing at her, threatening tone & demeaning talk directed to Female . Refused tx for removing swallowed coin from GI tract. refuses toileting for bowel orbladder. He had been nonthreatening all nightwith no BM for ME but he reported BM.I was going off shift DR nur without physical exam due to verbal threats and agressive BX. Reported off to day LOUIE Rosales who said guardian court appointed came today.
--- NOTE | 2019-12-25 19:39 | NUR ---
PT verbally abusive to staff 2 females when I came on shift he said he had pooped his pants & I said let me get the BOX SEALING MACHINE CATCHER and we will come clean you up as I was was in bedside report with Male RN. BOX SEALING MACHINE CATCHER entered room within 5 minutes & he verbally abused her refused care & vital signs & I returned to room within 2 minutes & told him he was being inappropriate & I was with my BOX SEALING MACHINE CATCHER he again verbally abuse & he threw bedside table across the room & beban demeaning staff. I called senior environmental engineer Karolina & explained situation and asked for 2 male caregivers to change incontinent attends with us & they did change him within 5 minutes. He did not verbally or physically abuse them. Reapproached PT who used call jarrell & he CO pain so will medicate him. Reminded PT we have a zero violence policy here & will not tolerate abuse.
--- NOTE | 2019-12-26 07:10 | NUR ---
PT slept most of shift after routine & PRN meds he was less agressive & allowed staff to changed wet attends & bedding around 1 am. Did not use call jarrell except beginning of shift. PRN 50 mg seroquel given x 1 with some helpful effect but PT still was making demeaning statements to staff with vulgar comments during cares. Does not redirect & confabulates that his rt hip pain was caused here by a staff menber who dropped him. This is not true. He had claimed he was in [place] [employer] than said his ex was in the [employer] not him.
--- NOTE | 2019-12-26 14:59 | NUR ---
PT HYGIENE SO FAR THIS SHIFT THE PT HAS DECLINED BATHING, THE PTS ROOM SMELLS OF URINE, THE PT AGREES TO BE CLEANED THEN DISAGREES AND GETS ANGRY WHEN APPROACHED, WILL CONTINUE TO ENCOURAGE AND ADDRESS THE PT HYGIENE
--- NOTE | 2019-12-26 15:46 | NUR ---
HYGEINE AFFTER SEVERAL ATTEMPTS THE PT FINALY LET THE SHARE DAIRY FARMER GIVE HIM A BED BATH, THE PT WAS HAPPY WITH THE CARE THE AIDE PROVIDED, CALL LIGHT IN REACH WILL CONTINUE TO MONITOR AND ASSESS FOR CHANGES
--- NOTE | 2019-12-26 18:00 | NUR ---
PT IS A/OX2, THE PT APPEARS TO BE BREATHING EASILY, THE PT WAS MEDICATED FOR PAIN THIS AM FOR PAIN ALL OVER, THE PT REFUSED CARE AT TIMES T/O THE DAY WOULD ONLY ALLOW ALLOW A BED BATH ONCE THIS AFETERNOON SO FAR, THE PT WAS BED REST T/O THE DAY, CALL LIGHT IN REACH WILL CONTINUE TO MONITOR AND ASSESS FOR CHANGES
--- NOTE | 2019-12-27 04:47 | NUR ---
SHIFT SUMMARY PT HAS RESTED WELL THIS SHIFT, PT HAS FOR THE MOST PART BEEN COOPERATIVE WITH STAFF, HE HAS BRIEF EPISODES OF AGRESSION IF HE DOES NOT RECEIVE THE ANSWER HE IS LOOKING FOR, OR WHEN TOLD NO TO CERTAIN THINGS. IT HAS BEEN EASY TO CALM PT AND REDIRECT THIS SHIFT. PT HAS RESTED IN BED AND HAS NOT BEEN OOB. THERE ARE NO ACUTE CHANGES IN PT ASSESSMENT. BED IN LOWEST POSITION, CALL LIGHT WITHIN REACH. WILL CONTINUE TO MONITOR AND REPORT TO ONCOMING RN.
--- NOTE | 2019-12-27 16:48 | NUR ---
still grumpy but cooperative, refuses to get up or to use toilet or even a bedpan, does not call and complains if ask if he has soiled himself, angry if ask any questions if not when he wants to discuss them, staff becoming adept at adapting to his whims and vagrancies, states he will walk tomorrow, took most medication, refused a scheduled laxitive, wanting to control out put r/coin, will continue to monitor and treat until share bsr with noc shift and pt
--- NOTE | 2019-12-28 04:32 | NUR ---
SHIFT SUMMARY ADMITTED FOR IMPAIRED MOBILITY AND PERSONAL CARE. FULL CODE. HE IS HOMELESS. LABILE MOODS. THIS SHIFT HE HAS BEEN PLEASANT & COOPERATIVE WITH CARE SO FAR. HE IS INCONTINENT OF BM AND URINE. HE CHOOSES NOT TO GET UP DUE TO CHRONIC PAIN. HE DOES HAVE A COIN HE SWALLOWED IN HIS TERMINAL ILEUM. HE STATES HE WILL SWALLOW IT AGAIN IF HE PASSES IT. RA, CARDIAC DIET. IF ARRANGEMENTS CAN BE MADE BY HIS GUARDIAN, HE MAY EVENTUALLY BE PLACED - POSSIBLY AT [facility]. HX DEMENTIA/ALZHEIMERS, BIPOLAR.
--- NOTE | 2019-12-28 18:23 | NUR ---
resting quietly in bed, managed well by staff, cooperative most of the time, only ate parts of meals, took all medications and treatments, still not willing to get up out of bed, moves limbs well, will continue to monitor and treat until share bsr with noc nurse and pt
--- NOTE | 2019-12-29 05:10 | NUR ---
SHIFT SUMMARY ADMITTED FOR IMPAIRED MOBILITY & PERSONAL CARE. FULL CODE. AWAITING PLACEMENT AT . GUARDIANSHIP IS ARRANGED FOR. THIS PT HAD A VERY LARGE SOFT/UNFORMED BM THIS SHIFT. RA, CARDIAC DIET, HX: LABILE MOODS. HOMELESS PRIOR TO ADMIT. A COIN OR SIMULAR OBJECT IS LODGED IN HIS TERMINAL ILEUM (HE STATES HE "SWALLOWED IT FOR SAFEKEEPING - HE DOES NOT TRUST ALARCON"), HE IS ASYMPTOMATIC REGARDING THIS. HE WAS AGAIN VERY PLEASANT THIS SHIFT SO FAR. COOPERATIVE WITH CARE. NO NEW CONCERNS.
--- NOTE | 2019-12-29 18:31 | NUR ---
a+o, still wanting to stay in bed and be cared for and cleaned up after, throws things on floor, incontinent, swears and makes inappropriate comments to staff, cooperative as long as gets what he wants, medicated as prescribed, no acute changes noted in condition during shift, will continue to monitor and treat until share bsr with noc nurse and pt
--- NOTE | 2019-12-30 06:51 | NUR ---
PT with calm affect he continues to refuse assist with toileting or out of bed. He was not abusive tonight & he allowed females to care for him. He is able to lift hips for attends changes. Continues to soak bed despite liner in attends. Medicated for rt hip pain with ultram & tylenol with good effect. Has court appointed guardian who he has met. PT saus they are trying to get me a room across the way. nonambulatory, total care for bed mobility, toileting & refuses mobility or pivot.
--- NOTE | 2019-12-30 17:26 | NUR ---
SUMMARY PT HAS BEEN A/O X 2-3, PLEASANT AFFECT, GENERALLY COOPERATIVE, FOLLOWING DIRECTION HOWEVER @ X'S CAN BECOME IRRITABLE, YELLS, CURSES. HE HAS BEEN UP TO SHOWER w GUM SPRAYER ASSIST, STATE PT WAS ABLE TO BR WT w/o PAIN. HE WAS UP IN CHAIR IN HIS ROOM & OUT IN ENAL TODAY. HE STATE CONTINUING PAIN R HIP, R RIBS--HAVE GIVEN ULTRAM X2 FOR PAIN CONTROL/RELIEF. HE IS INCONT, +BM THIS AM, DECLINED BOWEL MEDS. THIS AFTERNOON REQUESTED PRN SEROQUEL FOR MILD ANXIETY, GIVEN. VSS HE CONTINUES TO WAIT GUARDIANSHIP & PLACEMENT.
--- NOTE | 2019-12-30 22:27 | NUR ---
PT HAS REFUSED TO HAVE ATTENDS AND LINEN CHANGED AT THIS TIME. NURSE NOTIFIED.
--- NOTE | 2019-12-31 06:36 | NUR ---
PT more calm this shift, occasionally refused care but asked staff to come back when he calls. Continues to refuse bowel care & offers of bedpan or bedside commode to be continent of bowel or bladder. Soaks bed multiple times day & night. Refuses to wear clothes wears attends only. Some concern for others no delusions expressed.
--- NOTE | 2019-12-31 17:14 | NUR ---
SUMMARY PT CONTINUES TO AWAIT PLACEMENT, LISA MANAGER PEDIATRIC & GUARDIAN INVOLVED. PT HAS BEEN A/O 2-3 T/O DAY, HE IS IN GOOD HUMOR, INTERACTING w STAFF. SPEECH IS NOT ALWAYS APPROP, HAS HIS OWN VERSION OF REALITY BUT HE HAS BEEN PLEASANT, NO MANAGEMENT ISSUES, NO ACTING OUT TODAY. ACADEMIC ADVISEMENT DIRECTOR ASSIST HIM TO SHOWER & SHAVE. HE HAS BEEN OUT IN NEAL, IN CHAIR. HE IS BLE TO BR WT, HOWEVER w EFFORT, CONTINUES 1-2 ASSIST UP TO CHAIR. CONTINUES TO STATE R HIP, R RIB PAIN, PRN ULTRAM FOR RELIEF/CONTROL. VSS.
--- NOTE | 2020-01-01 06:38 | NUR ---
SHIFT SUMMARY PT IS A 74 Y/O MALE, ADMITTED FOR IMPAIRED MOBILITY. PT DOES HAVE A HX OF BIPOLAR DISORDER, BUT HAS BEEN APPROPRIATE AND COOPERATIVE WITH CARE. NO COMPLAINTS OF ACUTE PAIN, NAUSEA OR SOB. VITAL SIGNS STABLE. PT SLEPT WELL THROUGH THE NIGHT. NO ACUTE CHANGES IN PT CONDITION NOTED. WILL CONTINUE TO MONITOR AND TREAT PER EMAR UNTIL HAND OFF TO DAY SHIFT RN.
--- NOTE | 2020-01-01 19:23 | NUR ---
END OF SHIFT SUMMARY: PATIENT REPORTED PAIN IN HIS RIGHT HIP THIS MORNING. MEDICATED PER PRNS. PATIENT WAS ABLE TO TAKE A NAP. PATIENT REPORTED THAT IT DIDN'T HELP MUCH WITH HIS PAIN AND PATIENT REPORTED HE DIDN'T NEED ANY OTHER INTERVENTIONS. PATIENT HAS A GOOD APPETITE. PATIENT REFUSED GETTING UP TO THE CHAIR FOR MEALS. PROVIDED ENCOURAGEMENT TO KEEP MOVING. PATIENT REPORTED THAT HE HAS BEEN DOING EXERCISE IN HIS BED. 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 PATIENT WAS CALM AND COOPERATIVE THROUGHOUT SHIFT. PATIENT EXPRESSED APPRECIATION OF CARE.
--- NOTE | 2020-01-02 05:23 | NUR ---
SHIFT SUMMARY A/O, ABLE TO MAKE NEEDS KNOWN. COOPERATIVE WITH CARE. CALLS AND ANSWERS QUESTIONS APPROPRIATELY. C/O PAIN/DISCOMFORT TO R HIP, RATED 11/10; MEDICATED PER EMAR. APPEARED TO REST MUCH OF SHIFT. CONDOM CATH CONTINUES TO BE PATENT AND DRAINING TO GRAVITY. VSS/AFEBRILE. NO ACUTE CHANGES NOTED OVERNIGHT. BED REMAINS IN LOWEST POSITION. CALL LIGHT AND BELONGINGS WITHIN REACH. WCTM. REPORT TO ONCOMING RN.
--- NOTE | 2020-01-02 16:21 | NUR ---
NO ACUTE CHANGES. PT HAS BEEN VERY PLEASANT TODAY.
--- NOTE | 2020-01-03 06:18 | NUR ---
SHIFT SUMMARY A/O, ABLE TO MAKE NEEDS KNOWN. COOPERATIVE WITH CARE. CALLS AND ANSWERS QUESTIONS APPROPRIATELY. FORGETFUL AT TIMES. C/O PAIN/DISCOMFORT TO R HIP X1 THAT IS CHRONIC RATED 11/10 PAIN; MEDICATED PER EMAR. APPEARED TO REST MUCH OF SHIFT. CONDOM CATH PATENT, SECURED AND DRAINING TO GRAVITY. VSS/AFEBRILE. NO ACUTE CHANGES NOTED OVERNIGHT. BED IN LOWEST POSITION; ALARM ON. CALL LIGHT AND BELONGINGS WITHIN REACH. WCTM. REPORT TO ONCOMING RN.
--- NOTE | 2020-01-03 17:19 | NUR ---
NO ACUTE CHANGES.
--- NOTE | 2020-01-04 04:26 | NUR ---
SHIFT SUMMARY PT HAS HAD NO ACUTE CHANGES THIS SHIFT, HAS BEEN PLEASANT & COOPERATIVE W/CARE, USES CALL LIGHT APPROPIATELY, MEDICATED 1X FOR R HIP PAIN, PT SLEPT T/O NIGHT, SLEEPING AT THIS TIME, CALL LIGHT IN REACH, WILL CONT TO MONITOR UNTIL REPORT GIVEN TO DAY RN.
--- NOTE | 2020-01-04 16:54 | NUR ---
Shift Summary A/O to self and hospital. C/o 07/07 R hip pain, medicated per EMAR with moderate results. Patient states mild frustration with lack of utensils with meals, otherwise, cooperative. Appetite is good, no acute changes or concerns.
--- NOTE | 2020-01-05 06:10 | NUR ---
SHIFT SUMMARY PT HAS AHD NO ACUTE CHANGES THIS SHIFT, HAS BEEN PLEASANT & COOPERATIVE W/CARE, MEDICATED W/TYLENOL X1 @ BEDTIME FOR C/O 07/07 R HIP PAIN, PT WAS SLEEPING AT REASSESSMENT & SLEPT T/O SHIFT. PT SLEEPING AT THIS TIME, CALL LIGHT IN REACH, WILL CONT TO MONITOR UNTIL REPORT GIVEN TO DAY RN.
--- NOTE | 2020-01-05 16:02 | NUR ---
Shift Summary No acute changes this shift. Appetite remains good, mood is as pleasant as can be. Will continue to monitor.
--- NOTE | 2020-01-06 04:21 | NUR ---
SHIFT SUMMARY PT HAS HAD NO ACUTE CHANGES THIS SHIFT, PLEASANT & COOPERATIVE W/CARE, MEDICATED 1X W/TYLENOL FOR R HIP PAIN, PT SLEEPING AT REASSESSMENT THEN SLEPT T/O THE NIGHT. PT SLEEPING AT THIS TIME, CALL LIGHT IN REACH, WILL CON TO MONITOR UNTIL REPORT GIVEN TO DAY RN.
--- NOTE | 2020-01-06 18:30 | NUR ---
SHIFT SUMMARY: A&O X 3, PLEASANT, NO OUTBURSTS THIS SHIFT. C/O R HIP PAIN, TYLENOL GIVEN WITH ADEQUATE RELIEF. MOVES HIMSELF IN BED. WEARING CONDOM CATH, GOOD URINE OUTPUT. ON ROOM AIR, LUNGS CLEAR. GOOD APPETITE. PLAN IS FOR PLACEMENT AT [facility].
--- NOTE | 2020-01-07 07:03 | NUR ---
01/07/20 0600 PT SLEEPING WELL. HE WAS MEDICATED AT 0100 FOR CHRONIC RT HIP PAIN WITH GOOD RELIEF. CONDOM CATH IN PLACE AND DRAINING WELL.
--- NOTE | 2020-01-07 18:22 | NUR ---
SHIFT SUMMARY: A&O X 3, PLEASANT AND COOPERATIVE. C/O R HIP PAIN, MEDICATED PER EMAR WITH GOOD EFFECT. EDUCATED ABOUT REPORTING PAIN WHEN IT JUST STARTS TO ESCALATE IN ORDER TO HAVE BETTER PAIN CONTROL; VERBALIZED UNDERSTANDING. INCONTINENT OF B&B, HAS CONDOM CATH, NO BM TODAY. PLAN IS FOR GUARDIANSHIP AND PLACEMENT.
--- NOTE | 2020-01-08 07:22 | NUR ---
01/08/20 0430 RN making rounds and pt sleeping in bed. Pt has slept well last night. Condom cath draining well with clear,denis urine. Pt has been taking oral fluids/food well throughout shift. Pt generally pleasant but occ. he can be rude and demanding.
--- NOTE | 2020-01-08 07:28 | NUR ---
01/08/20 0600 PT SLEEPING WELL AFTER GIVEN ANTI-AGITATION MED EARLIER. PT WAS SCREAMING LOUD WHILE STAFF WAS CHANGING HER INCONTINENT BRIEF AND DOING PATRICK-CARE. SHE GENERALLY IS TAKING ORAL FLUIDS WELL. RASH NOTED THE PAST TWO DAYS ON FACE,GROIN AND THIGHS. THIS AM, RASH SEEMS WORSE ON FACE AND NOW PARTIALLY DOWN NECK. DENIES SOB AND SWALLOWING GOOD. PT DENIES ANY ITCHING THIS AM. INFORMED DAY SHIFT RN ABOUT PROGRESSION OF RASH THIS AM AND TO INFORM DAY SHIFT MD DURING ROUNDS.
--- NOTE | 2020-01-08 07:34 | NUR ---
01/08/20 0615 PT NAKED IN ROOM. HE HAD REMOVED HIS CLOTHES AND PUT THEM IN THE WASTE BASKET. CLOTHES WERE WET WITH URINE. PATRICK-CARE GIVEN ALONG WITH NEW, CLEAN CLOTHES. OTHERWISE, UNEVENTFUL NIGHT.
--- NOTE | 2020-01-08 17:29 | NUR ---
SHIFT SUMMARY PT A/O THIS SHIFT. PT IS COOPERATIVE WITH CARE. PT HAS BEEN SITTING UP IN BED WATCHING TELEVISION THROUGHOUT THIS SHIFT. PT UP TO SHOWER THIS SHIFT. PT DENIES FURTHER NEEDS WHEN ASKED THROUGHOUT THE SHIFT. PT CURRENTLY UP IN BED WATCHING TELEVISION.
--- NOTE | 2020-01-09 04:58 | NUR ---
TRAFFIC CONTROL FLAGGER SUMMARY NO ACUTE CHANGES THIS SHIFT. PT AAOX3 AND HAS BEEN PLEASANT TONIGHT. GIVEN TYLENOL X1 FOR R HIP PAIN. PT HAS BEEN ABLE TO REST COMFORTABLY THROUGH THE NIGHT. ASSISTED WITH ATTENDS CHANGES PT IS INCONTINENT. VSS, WILL CONTINUE TO MONITOR.
--- NOTE | 2020-01-09 16:26 | NUR ---
PT IS A/OX3, PLEASANT AND COOPERATIVE TODAY, PT APPEARS TO BE BREATHING EASILY ON RA, PT WAS MEDICATED FOR PAIN X1 SO FAR THIS SHIFT, THE HAS BEEN INCONTNENT IN BED AND HAS BEEN IN THE BED T/O THE DAY, PT IS AWAITING PLACEMENT AT THIS TIME, [facility] LIGHT IN REACH, BED ALARM ON, WILL CONTINUE TO MONITOR AND ASSESS FOR CHANGES
--- NOTE | 2020-01-10 04:28 | NUR ---
INDUSTRIAL GAS SERVICE HELPER SUMMARY NO ACUTE CHANGES. PT AAOX3, PLEASANT AND COOPERATIVE WITH CARE. DENIES SOB, PAIN, N/V. PT OFFERS NO COMPLAINTS THROUGH THE NIGHT. STILL AWAITING GUARDIANSHIP AND PLACEMENT IN A [facility]PER[facility] CARE FACILITY. VSS, WILL CONTINUE TO MONITOR.
--- NOTE | 2020-01-10 08:26 | NUR ---
ASSUMPTION OF CARE NOTE- PATIENT IS PLEASANT AND COOPERATEIVE THIS MORNING. ALL MEDICATIONS GIVEN EXCEPT FOR MIRALAX. PATIENT REFUSED AND STATED HE DID NOT FEEL THAT HE NEEDED A LAXATIVE. HE HAS BEEN COOPERATIVE WITH CARE THIS AM AND MOOD IS STABLE.
--- NOTE | 2020-01-10 16:57 | NUR ---
SHIFT SUMMARY NO ACUTE CONCERNS TODAY, PATIENT HAS BEEN PLEASANT. TRYING TO STRETCH OUT PATIENTS SNACKS AND MEALS. HE HAS BEEN VERY GOOD ABOUT EATING SLOW INSTEAD OF SCARFING HIS FOOD DOWN. HE AHS BEEN COOPERATIVE BUT MILDLY TEARFUL.
--- NOTE | 2020-01-10 16:59 | NUR ---
SHIFT SUMMARY PATIENT HAS BEEN PLEASANT AND COOPERATIVE TODAY. TAKEN ALL HIS MEDICATION MINUS HIS MIRALAX. HE STATED THAT IT WAS NOT WORKING AND HE DIDN'T FEEL THAT HE NEEDED A LAXATIVE ALTHOUGH HE TOOK THE DOCUSATE NEHAL TABLET. HE HAS USED HIS CALL LIGHT APPROPRIATELY.
--- NOTE | 2020-01-11 03:55 | NUR ---
SHIFT SUMMARY PATIENT HAD NO ACUTE CHANGES OBSERVED. AXOX 3 AND BEDFAST. NO IV ACCESS. DENIES PAIN, SOB, AND N/V. USES CALL LIGHT APPROPRIATELY. TAKES MEDICATION WHOLE WITH WATER. COOPERATIVE WITH CARE. CALL LIGHT IN REACH. BED IN LOWEST POSITION. WILL CONTINUE TO MONITOR UNTIL DAY SHIFT NURSE ASSUMES CARE.
--- NOTE | 2020-01-11 14:58 | NUR ---
PT BP NOTED TO BE 87/44 ON AFTERNOON VS, PT LYING ON LEFT SIDE WHEN BP TAKEN AND WOULD NOT ROLL ONTO BACK. WILL CONT TO MONITOR, PT KNOWN TO BE HYPOTENSIVE AT TIMES.
--- NOTE | 2020-01-11 16:43 | NUR ---
SHIFT SUMMARY- PT HAS BEEN PLEASANT T/O MOST OF THE DAY, PT REFUSES CARE AT TIMES. LS CLEAR, ON RA. INCONT OF URINE. XLG BM TODAY. GOOD PO INTAKE. NO OTHER ACUTE CHANGES THIS SHIFT. PT CONT TO AWAIT PLACEMENT.
--- NOTE | 2020-01-11 21:14 | NUR ---
PATIENT REFUSED FIRST SET OF SHIFT VITALS. PATIENT ALSO REFUSED TO BE CHECKED FOR ATTENDS CHANGE. CALL LIGHT IN REACH.
--- NOTE | 2020-01-12 05:14 | NUR ---
SHIFT SUMMARY PATIENT HAD NO ACUTE CHANGES OBSERVED. PATIENT REFUSED ATTEND CHANGES AT TIMES. AXO X3 AND BEDREST. DENIES PAIN, SOB, AND N/V. TAKES MEDICATION WHOLE WITH WATER. NO IV ACCESS. CALL LIGHT IN REACH. BED IN LOWEST POSITION. WILL CONTINUE TO MONITOR UNTIL DAY SHIFT NURSE ASSUMES CARE.
--- NOTE | 2020-01-12 18:30 | NUR ---
SHIFT SUMMARY: A&O X 3, PLEASANT, BUT IS RESISTANT TO BASIC CARE LIKE BATHING AND PERICARE/ATTENDS CHANGE DEPENDING ON HIS MOOD. C/O PAIN IN R HIP; MEDICATED PER EMAR WITH GOOD EFFECT. TAKING ADEQUATE PO. ENCOURAGED USE OF URINAL TODAY, BUT PT REMAINED INCONT. NO BM TODAY, BOWEL MEDS GIVEN, IS IN NO DISTRESS, ABD SOFT AND NON TTP. REFUSING SCD'S. PLAN IS FOR GUARDIANSHIP AND PLACEMENT.
--- NOTE | 2020-01-13 04:23 | NUR ---
SHIFT SUMMARY PATIENT HAD NO ACUTE CHANGES OBSERVED. OK WITH ATTENDS CHECKS THIS SHIFT REFUSING LAST NOC SHIFT. AXOX 3 AND BEDREST. TAKES MEDICATION WHOLE WITH WATER. WATCHING TV FIRST PART OF SHIFT. DENIES PAIN, SOB, AND N/V. CALL LIGHT IN REACH. BED IN LOWEST POSITION. WILL CONTINUE TO MONITOR UNTIL DAY SHIFT NURSE ASSUMES CARE.
--- NOTE | 2020-01-13 09:11 | NUR ---
OFFERED PT A BEDBATH AND HE STATED THAT I AM NOT SMART ENOUGH TO DO SUCH A SIMPLE TASK. HE ALSO STATED THAT ALL HE WANTS ME TO DO TODAY IS GIVE HIM HIS FOOD AND LEAVE HIM ALONE.
--- NOTE | 2020-01-13 16:17 | NUR ---
PT REQUESTED TO HAVE A URINAL AT THE BEDSIDE AND REFUSED TO LET ME MAKE SURE HIS ATTENDS WERE CLEAN AND DRY.
--- NOTE | 2020-01-13 16:24 | NUR ---
SHIFT SUMMARY PT REFUSED CARE THROUGHOUT SHIFT. REFUSED BED BATH, REFUSED FULL ASSESSMENT, REFUSED REPOSITION & CHANGES AT TIMES. PT CALM & PLEASANT AT THIS TIME. VERY LABILE WITH STAFF. NO OTHER ACUTE CHANGES IN ASSESSMENT AT THIS TIME. TYLENOL GIVEN FOR 100.2 DEGREE F PER PT REQUEST. OTHER VITALS STABLE. WILL CONTINUE TO MONITOR UNTIL TURNOVER IS COMPLETE.
[2020-01-14 04:51] LABS: BASOPHILS ABSOLUTE AUTO 0.03 K/mm3 (0.00-0.23); BASOPHILS PERCENT AUTO 0 % (0-2); EOSINOPHILS ABSOLUTE AUTO 0.29 K/mm3 (0.00-0.68); EOSINOPHILS PERCENT AUTO 4 % (0-6); Hemoglobin 11.9 g/dL (13.5-17.5); IMMATURE GRAN ABSOLUTE AUTO 0.02 K/mm3 (0.00-0.10); IMMATURE GRAN PERCENT AUTO 0 % (0-1); LYMPHOCYTES ABSOLUTE AUTO 0.94 K/mm3 (0.84-5.20); LYMPHOCYTES PERCENT AUTO 12 % (21-46); MONOCYTES PERCENT AUTO 12 % (4-13); Mean Corpuscular HGB 29.5 pg (26.0-34.0); Mean Corpuscular HGB Conc 30.5 g/dL (31.5-36.5); Mean Corpuscular Volume 97 fL (80-100); Mean Platelet Volume 9.8 fL (9.1-12.4); NEUTROPHILS PERCENT AUTO 71 % (41-73); Platelet Count 219 K/mm3 (150-400); RDW Coefficient Variation 14.1 % (11.7-14.2); RDW Standard Deviation 50.4 fL (35.1-46.3); Red Blood Cell Count 4.03 M/mm3 (4.30-5.90); White Blood Cell Count 7.58 K/mm3 (4.00-11.30)
--- NOTE | 2020-01-14 04:55 | NUR ---
SUMMARY: PT WAS PLEASANT MOST OF SHIFT BUT BEHAVIOR IS LABILE AND HE BECAME IRRITABLE/INAPPROPRIATE TOWARD STAFF THIS EARLY AM. HE REFUSED CARE MAJORITY OF NIGHT BUT DID ALLOW SELDOM REPOSITIONING. PT INSISTED UPON USING URINAL INDEPENDENTLY BUT ALSO WAS INCONTINENT AND SPILLED URINAL SO LINEN CHANGES WERE REQUIRED. HE DENIED PAIN/COMPLAINTS AND WAS PROVIDED SNACKS PER REQUEST. NO ACUTE CHANGES, VSS/AFEBRILE. PT MAY D/C TO [facility] ON 01/17/20. KARISSA AND REPORT TO DAY RN.
[2020-01-14 05:08] LABS: Alanine Aminotransfer (ALT/SGP 12 U/L (12-78); Albumin, Blood 2.6 g/dL (3.4-5.0); Albumin/Globulin Ratio 0.8 (0.8-1.8); Alk Phos 77 U/L (50-136); Anion Gap 4 mmol/L (6-16); Aspartate Aminotrans (AST/SGOT 10 U/L (12-37); Bilirubin, Total 0.3 mg/dL (0.1-1.0); Blood Urea Nitrogen 24 mg/dL (8-24); Bun/Creatinine Ratio 25.8 (12.0-20.0); CO2, Blood 24 mmol/L (21-32); Calcium, Blood 9.7 mg/dL (8.5-10.1); Chloride, Blood 114 mmol/L (98-108); Creatinine, Blood 0.93 mg/dL (0.60-1.20); Globulin, Blood 3.2 g/dL (2.2-4.0); Glomerular Filtration Rate >60 (60-); Glucose, Blood 98 mg/dL (70-99); Magnesium, Blood 2.2 mg/dL (1.6-2.4); Phosphorus, Blood 3.2 mg/dL (2.5-4.9); Potassium, Blood 4.5 mmol/L (3.5-5.5); Sodium, Blood 142 mmol/L (136-145); Total Protein, Blood 5.8 g/dL (6.4-8.2)
[2020-01-14 05:13] LABS: Lithium 0.94 mmol/L (0.60-1.20)
--- NOTE | 2020-01-14 08:31 | NUR ---
PT REFUSED VITALS AT THIS TIME. PT ALSO REFUSED TO BE CHANGED AND REPOSITIONED. HE USED VULGAR LANGUAGE WHEN TELLING ME TO GET OUT AND LEAVE HIM ALONE.
--- NOTE | 2020-01-14 10:39 | NUR ---
PT STATED TAHT HE WAS DRY AND REFUSED TO LET ME CHECK AND CHANGE HIM.
--- NOTE | 2020-01-14 10:51 | NUR ---
PT THIS AM HAS BEEN RUDE AND UNPLEASANT WITH THE STAFF, USEING INAPPROPRIATE LANGUAGE, THIS RAN UNDER STRESS WITH THE PT USED SOME INAPPROPRIATE LANGUAGE BACK TO HIM, WILL ALOW THE PT TO CALM THEN APPOLOGIZE TO THE PT, THE PT REFUSED FULL ASSESMENT THIS AM, CALL LIGHT IN REACH WILL CONTINUE TO MONITOR AND ASSESS FOR CHANGES
--- NOTE | 2020-01-14 17:12 | NUR ---
PT IS A/OX3, COOPERATIVE, THE PT HAS BEEN BEDREST T/O THE DAY DENIED TO GET UP WITH ASSISTANCE TODAY, AFTER AN APOLOGIE WAS MADE TO THE PT TODAY FOLLOWING INAPROPRIATE COMMENT BY THIS RN THE PT WAS MORE COOPERATIVE AND ALLOWED A BED BATH AND LINEN CHANGE THE PT APPEARS TO BE BREATHING EASILY AT THIS TIME ON RA, CALL LIGHT IN REACH, WILL CONTINUE TO MONITOR AND ASSESS FOR CHANGES
--- NOTE | 2020-01-14 18:30 | NUR ---
PT REFUSED LETTING ME CHECK HIS ATTENDS AND REPOSTIONING.
--- NOTE | 2020-01-15 05:33 | NUR ---
SUMMARY: PT IS A/OX3, HAS BEEN PLEASANT AND COOPERATIVE THIS SHIFT AND ALLOWED MOST CARE AND ADL'S TO BE PERFORMED. SNACKS PROVIDED PER PT REQUEST AND HE USED URINAL BY SELF THE MAJORITY OF SHIFT. HE CALLED STAFF TO ALERT OF INCONTINENCE AND REQUESTED BEDBATH W/ATTENDS AND LINEN CHANGE PRN. HE REFUSED REPOSITIONING A COUPLE TIMES BUT GRADUALLY MOVED SELF IN BED WELL. NO ACUTE CHANGES, VSS/AFEBRILE. PT PENDING LIKELY D/C TO [facility] W/PROSPECTIVE DATE OF 01/17/20. WCTM AND REPORT TO DAY RN.
--- NOTE | 2020-01-15 16:30 | NUR ---
SHIFT SUMMARY PT WAS ALERT AND ORIENTED X4 TODAY WITH A PLEASANT AND COMPLIANT AFFECT. PT REMAINED IN BED TODAY AND COOPERATED WITH LINEN AND ATTENDS CHANGES NEEDED. PT HAS BEEN BREATHING REGULARLY AND EASILY THROUGHOUT THE DAY. PT WAS MEDICATED WITH TRAMADOL FOR PAIN THIS AM AND HAS NOT REQUESTED FURTHER PAIN MANAGMENT. PT HAS BEEN SLEEPING THIS EVENING AND HAS DENIED ANY NEED FOR FURTHER CARE.
--- NOTE | 2020-01-16 05:34 | NUR ---
SUMMARY NO NEW ISSUES NOTED. PT IS COOPERATIVE AND AGREEABLE. PT COMPLAINED OF R HIP DISCOMFORT AND TX PER EMAR. PT HAS BEEN USING URINAL WHEN ABLE. PT HAS SLEPT MOST OF SHIFT AND REPOSITIONED SELF NEEDED. PT CURRENTLY SLEEPING AND BREATHING EASY. CALL LIGHT IN REACH AND BED ALARM ON.
--- NOTE | 2020-01-16 19:30 | NUR ---
SHIFT SUMAM: NO ACUTE CHANGES TO REPORT THIS SHIFT. PT A&O; OCC IRRITABLE; COOPERATIVE WITH CARE. MEDICATED FOR R HIP PAIN PER EMAR. MEDICALLY STABLE; EXPECTED D/C TO [facility] 01/16. REPORT GIVEN TO ONCOMING RN.
--- NOTE | 2020-01-17 06:29 | NUR ---
0600 PT REFUSED AM VITAL SIGNS AND OFFER TO HAVE ATTENDS CHANGED PER LORRAINE PATTERSON CNA.
--- NOTE | 2020-01-17 06:30 | NUR ---
SHIFT SUMMARY: 74 Y/O MALE RESTED COMFORTABLY ALL SHIFT; PT DENIES PAIN OR NAUSEA; HAPPY AND COOPERATIVE; BED ALARM APPLIED, BED LOW POSITION WITH CALL LIGHT AT SIDE.
--- NOTE | 2020-01-17 18:12 | NUR ---
NO ACUTE CHANGES TO PT. WAS PLEASANT THIS SHIFT WHICH IS ALWAYS A NICE THING FOR STAFF. REFUSED PERSONAL CARE. STAFF DID NOT ARGUE WITH PT OR PUSH THE ISSUE. STAFF WAS UNDER THE IMPRESSION PT WAS TO TRANSFER TO [facility]. THIS DID NOT HAPPEN.
--- NOTE | 2020-01-18 04:45 | NUR ---
PT REFUSED AM VITALS AND ALSO REFUSED TO HAVE ATTENDS CHANGED. PT STATED "I JUST WANT TO SLEEP NOW GET THE HELL OUT OF MY ROOM" WILL ATTEMPT TO OBTAIN VITALS AND CHANGE ON NEXT ROUND. NURSE NOTIFIED.
--- NOTE | 2020-01-18 04:54 | NUR ---
SHIFT SUMMARY NO ACUTE CHANGES THIS SHIFT. PT COOPERATIVE AT START OF SHIFT. REFUSING VITAL SIGNS AND ATTENDS CHANGE THIS AM. WILL ATTEMPT AGAIN BEFORE END OF SHIFT. PT'S MOOD LABILE. PT CONTINUES TO STATE THAT HE CANNOT GET OUT OF BED. USES THE URINAL WHILE IN BED AT TIMES. INCONTINENT MOST OF THE TIME. PT IS HEAVY WETTER. PM VITALS STABLE. WILL CONTINUE TO MONITOR.
--- NOTE | 2020-01-18 06:18 | NUR ---
PT ALLOWED VITAL SIGNS TO BE TAKEN BUT CONTINUES TO REFUSE TO HAVE HIS BRIEF AND BEDDING CHANGED.
--- NOTE | 2020-01-18 18:23 | NUR ---
Shift Summary A/O to self. Patient had a pleasant and cooperative day. Allowed ENROBING MACHINE OPERATOR to change and reposition as needed. C/O pain, will medicate per EMAR. No other changes. Will continue to monitor.
--- NOTE | 2020-01-19 05:32 | NUR ---
SHIFT SUMMARY: VSS. AFEB. PT COOPERATIVE W/ ATTENDS CHANGES SO FAR TONIGHT. HELPS W/TURNS IN BED. HAS REMAINED IN BED, RESTING QUIELTY THROUGH MOST OF THE NIGHT. NO ACUTE CHANGES. WILL CONT TO MONITOR.
--- NOTE | 2020-01-19 15:47 | NUR ---
Shift Summary No new concerns today. Cooperative and pleasant with brief changes and care when needed. No signs of agitation. Overall an uneventful day.
--- NOTE | 2020-01-20 03:38 | NUR ---
SHIFT SUMMARY: VSS. AFEB. A/O AT BASELINE. COOPERATIVE W/CARES TONIGHT. HAS REMAINED IN BED ALL NIGHT. INCONTINENT. ULTRAM ADMINISTERED FOR R HIP PAIN X 1 W/GOOD EFFECT. HAS APPEARED TO SLEEP THROUGH MOST OF THE NIGHT SO FAR. NO ACUTE CHANGES. WILL CONT TO MONITOR.
--- NOTE | 2020-01-20 16:32 | NUR ---
ALERT TO SELF. INTERMITTENT COOPERATIVE. GOOD APPETITE. UNLABORED RESPIRATIONS. NO ACUTE CHANGES.AWAITING PLACEMENT. TM
--- NOTE | 2020-01-20 18:35 | NUR ---
PATIENT REFUSES AFTERNOON VITAL SIGNS.
--- NOTE | 2020-01-21 06:43 | NUR ---
PT continues to decline assist with using urinal or condom cath & does not call when wet. No agressive BX
--- NOTE | 2020-01-21 16:25 | NUR ---
SHIFT SUMMARY PATIENT DENIES PAIN, NAUSEA, AND SHORTNESS OF BREATH. PATIENT NAPPING IN BED OR UP IN RECLINER IN HALLWAY THIS SHIFT. PATIENT ABLE TO STAND PIVOT TO TRANSFER FROM BED TO CHAIR. PATIENT EATING AND DRINKING WELL. PATIENT COMPLIANT WITH CARE THIS SHIFT. CALL LIGHT IN REACH.
--- NOTE | 2020-01-22 07:12 | NUR ---
PT attempts to delay cares & have staff return later for incontinence cares. PT did use urinal x 1 with 150 ml cloudy urine plus incontinence. PT aggitated this AM with INFORMATICS SCIENTIST and cussed her several times. Seroquel 50 mg prn given with helpful effect. Medicated for CO pain rt hip x 2 . Needs max assist 2 for bed mobility & toileting. Large amts of urine soaks bed & gown. Does not call for assist when wet.
--- NOTE | 2020-01-22 18:21 | NUR ---
SUMMARY PT SITTING UP IN BED EATING DINNER, PT HAS BEEN PLEASANT AND COOPERATIVE WITH CARE, JAM CARTWRIGHT STAFF WAS IN TO SEE HIM, HE WAS STILL SLEEPING WHEN THEY ARRIVED AND WAS UNABLE TO VISIT WITH THEM, PT MED PER EMAR FOR PAIN, NO COMPLAINTS T/O THE DAY, WILL CONT TO MONITOR
--- NOTE | 2020-01-23 07:09 | NUR ---
PT continues in bed all shift, able to communicate but chooses to not call when wet or soiled. HAs chronic rt hip pain relieved by PRN TYL or Ultram. No agression says he [facility] going [facility] have [facility] today potentially. Appetite good able to take meds whole.
--- NOTE | 2020-01-23 17:19 | NUR ---
SUMMARY PT RESTING IN BED WATCHING TV, PT HAS BEEN PLEASANT AND COOPERATIVE WITH CARE T/O THE DAY, PT UP TO THE SHOWER FIRST THING THIS MORNING, VSS, NO ACUTE CHANGES, WILL CONT TO MONITOR
--- NOTE | 2020-01-24 06:04 | NUR ---
SHIFT SUMMARY NO ACUTE CHANGES TO REPORT THIS SHIFT. PT HAS BEEN PLESANT WITH CARE. A/OX4, MAKES NEEDS KNOWN. VITALS STABLE. STILL AWAITING PLACEMENT AT THIS TIME. PLAN OF CARE UNCHANGED. BED IN LOWEST POSITION, CALL LIGHT WITHIN REACH. WILL CONTINUE TO MONITOR AND REPORT TO ONCOMING RN.
[2020-01-24] MEDS ORDERED: ACET325 PO (12:02)
[2020-01-24] MEDS ORDERED: BISA5EC PO (12:03)
[2020-01-24] MEDS ORDERED: ONE DAILY MUL400 MCG PO (12:04)
[2020-01-24] MEDS ORDERED: MIRALAX17 GM PO (12:05)
[2020-01-24] MEDS ORDERED: Seroquel Xr300 MG PO (12:09)
[2020-01-24] MEDS ORDERED: Seroquel Xr50 MG PO (12:10)
[2020-01-24] MEDS ORDERED: QUET100 PO (12:10)
[2020-01-24] MEDS ORDERED: Metamucil Smooth1 EA PO (12:11)
--- NOTE | 2020-01-24 16:09 | NUR ---
PATIENT WITHOUT ANY ACUTE CHANGES TO REPORT ON AT THIS TIME. PLEASANT AND COOPERATIVE WITH STAFF. CALLS FOR STAFF ASSIST NEEDED. RESTING IN ROOM AT THIS TIME. WILL CONTINUE TO MONITOR AND PROVIDE CARE NEEDED.
--- NOTE | 2020-01-25 07:10 | NUR ---
SHIFT SUMMARY PATIENT SLEPT WELL ALL NIGHT. BED IN LOWEST POSITION WITH WHEELS LOCKED. CALL LIGHT WITHIN REACH. REPORT GIVEN TO ONCOMING RN.
--- NOTE | 2020-01-25 11:14 | NUR ---
1020 PT DISCHARGED TO [facility] [place] VIA GURNEY TRANSPORT. BELONGINGS WITH PT. D/C PACKET WITH DEPUTY MANAGER. [id number] REPORT CALLED TO RACHAEL.
== END 2020-01-25 10:20 ==
LOC: ER 14:12 → MEDS 14:13
PROVIDERS: Emergency Medicine; Family Medicine; Hospitalist; Nurse Practitioner Acute Care; Psychiatry & Neurology Psychiatry; Student in an Organized Health Care Education/Training Program; ADMIT Internal Medicine
DX: G30.9 Alzheimer's disease, unspecified (principal); F31.9 Bipolar disorder, unspecified; F02.80 Dementia in other diseases classified elsewhere, unspecified severity, without behavioral disturbance, psychotic disturbance, mood disturbance, and anxiety; I10 Essential (primary) hypertension; F17.210 Nicotine dependence, cigarettes, uncomplicated; Z79.899 Other long term (current) drug therapy
CPT/HCPCS: 36415; 51701; 70450; 71046; 72070; 72100; 72125; 72170; 73030; 73502; 74018; 80048; 80053; 80178; 81001; 83735; 83880; 84100; 84443; 84484; 85025; 86592; 87086; 99285-25; A9270; A9270-GY; G0378; G0480